=== PATIENT | male | born 1950 | race Caucasian/White ===

== ENCOUNTER 2023-11-26 14:28 | Emergency (ER) | payer OTHER, SELFPAY ==
[2023-11-26 14:47] VITALS: BP 143/82
[2023-11-26 15:28] LABS: % Basophils 0.3 % (0-2); % Immature Granulocytes 0.5 % (0-0.5); % Lymphocytes 8.2 % (20.5-51.1); % Monocytes 12.8 % (1.7-9.3); % Neutrophils 78.2 % (42.2-75.2); Absolute Lymphocytes 0.6 10^3/uL (1.2-3.4); Absolute Neutrophils 5.8 10^3/uL (1.4-6.5); Hematocrit 38.9 % (39.0-52.0); Hemoglobin 13.4 g/dL (13.0-18.0); Mean Corp Hgb Conc. 34.4 g/dL (33.0-37.0); Mean Corpuscular Hgb 32.4 pg (27.0-31.0); Mean Platelet Volume 8.4 fL (7.4-10.4); Nucleated Red Blood Cells % 0 % (-); Platelet Count 166 10^3/uL (130-400); Red Blood Cell Count 4.14 10^6/uL (4.70-6.10); White Blood Cell Count 7.5 10^3/uL (4.8-10.8)
[2023-11-26 15:31] LABS: ALT (SGPT) 20 U/L (0-50); AST (SGOT) 24 U/L (17-59); Albumin 3.8 g/dl (3.5-5.0); Alkaline Phosphatase 94 U/L (38-126); Blood Urea Nitrogen 19 mg/dl (9-20); COVID-19 Antigen Positive (Negative); Carbon Dioxide 23 mmol/L (22-30); Chloride 101 mmol/L (98-107); Glucose 105 mg/dl (70-99); Potassium 3.9 mmol/L (3.5-5.1); Sodium 134 mmol/L (135-145); Total Bilirubin 0.9 mg/dl (0.2-1.3); Total Protein 6.4 g/dl (6.3-8.2); eGFR > 60.00
[2023-11-26 15:43] LABS: Troponin I < 0.012 ng/ml
[2023-11-26 17:31] VITALS: BP 139/77; BP 147/92; BP 157/66; PULSE 58; PULSE 66; PULSE 72
[2023-11-26 17:35] VITALS: BP 157/67
[2023-11-26 17:37] VITALS: BP 147/92
--- NOTE | 2023-11-26 17:53 | ED.GENMED ---
History of Present Illness
General
Chief Complaint: Dizziness
Source: patient
Exam Limitations: dementia
Time Seen by Provider: 11/26/23 16:53
Nursing documentation reviewed up to this point in time: agreed with
Travel History
Have you had any contact with someone who has COVID-19?: No
Do you have any symptoms of coronavirus? Fever > 100 degrees, chills, cough, shortness of breath, sore throat, loss of taste or smell, muscle aches, or headache?: No
History of Present Illness
History of Present Illness:
72-year-old male with a history of glioblastoma status postresection in 2019 with residual short-term memory issues, hypertension, hyperlipidemia, previous DVTs, not on anticoagulation presents for a slight cough and congestion over the last 2 days
as well as today feeling lightheaded. Patient typically has problems with his balance especially when he bends over because of his previous brain surgery. But he seems to be a little bit more off balance today. At 1 point when he was going down
the steps he had to sit down and have his daughter who is his primary caregiver and lives with him helped him. He has not had any headache, change in mental status, vision changes, chest pain or shortness of breath, vomiting or diarrhea. He has an
occasional mild cough and sore throat as well as some swollen glands in his neck.
He never had any syncope or near syncope feeling, he has not had racing heart, he is vaccinated and had 1 booster for COVID but has never had COVID that he knows of
Past History
Past History
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
ED Past Surgical History: Brain (Left temporal brain tumor removal, glioma, 08/18/2019)
Social History
Tobacco: Non-smoker
Alcohol: None
Drug: None
Personal:
Living: with family
Employment: Retired
Family History
Family History: Other (noncontributory)
Review of Systems
Review of Systems
Allergies reviewed?: Yes
Unable to obtain full review of systems at this time due to: dementia
All Other Systems: Not applicable
Phy Exam
Physical Exam
Physical Exam:
GENERAL: Alert , in no apparent distress
HEAD: prior surgery brain
EYE: pupils equal and reactive
NECK: Supple
ENT: b/l TM s clear, pharynx erythematous but no tonsillar hypertrophy or exudates
silghtly tender tonsillar PETERSON
CARDIAC: Regular rate and rhythm, no edema
LUNGS: Clear breath sounds bilaterally, no acute respiratory distress, no wheezes/rales/rhonchi, occ cough
ABDOMEN: Soft, without focal tenderness, no r/g, no cvat, normal bowel sounds
NEUROLOGICAL: Alert and oriented x 3, no focal neuro deficits - situtational confusion ,short term memory loss
SKIN: Warm and dry, skin intact.
MUSCULOSKELETAL: No edema, well perfused.
PSYCH: Normal and appropriate interaction.
Course
Orders/Labs/Results
Orders:
Orders
11/26/23 14:49
EKG [Electrocardiogram (*1)] Urgent
Reason for Study: Vertigo / Dizzy
EKG- Treatment ONCE
11/26/23 15:00
CBC/With Diff [Complete Blood Count/With Diff] Urgent
COVID-19 Antigen Urgent
Source: Nasal Swab
Comprehensive Metabolic Panel Urgent
Troponin I Urgent
Influenza A+B Rapid Molecular Urgent
TING Source: Nasal Swab
Specimen Description:
11/26/23 17:31
Orthostatic VS- Treatment ONCE
11/26/23 17:54
CR Chest - 2 Views Urgent
Comment:
Reason For Exam: covid
Abnormal Lab Results
11/26/23
15:00
RBC 4.14 L 10^6/uL
(4.70-6.10)
Hct 38.9 L %
(39.0-52.0)
MCH 32.4 H pg
(27.0-31.0)
Absolute Lymphs (auto) 0.6 L 10^3/uL
(1.2-3.4)
Absolute Monos (auto) 1.0 H 10^3/uL
(0.1-0.6)
Neutrophils % 78.2 H %
(42.2-75.2)
Lymphocytes % 8.2 L %
(20.5-51.1)
Monocytes % 12.8 H %
(1.7-9.3)
Sodium 134 L mmol/L
(135-145)
Glucose 105 H mg/dl
(70-99)
SARS-CoV-2 Antigen Positive A
(Negative)
11/26/23 15:00
11/26/23 15:00
Vital Signs
Temp: 99.5 F
Initial and Last Documented VS:
Initial Vital Signs
Temp Pulse Resp BP Pulse Ox
100.4 F H 83 16 143/82 95
11/26/23 14:47 11/26/23 14:47 11/26/23 14:47 11/26/23 14:47 11/26/23 14:47
Last Documented Vital Signs
Temp Pulse Resp BP Pulse Ox
99.5 F 62 18 143/80 95
11/26/23 17:59 11/26/23 18:00 11/26/23 18:00 11/26/23 18:00 11/26/23 14:47
MDM/Problems Addressed
Differential Diagnosis Includes:
Near syncope, orthostasis, dehydration, COVID
MDM/Problems Addressed:
72-year-old male with a history of a previous brain tumor resection with chronic short-term memory issues and some balance problems at baseline presents for slightly worsening balance issues today. In the setting of recent URI symptoms. Patient
had a slight fever today at 100.4 when he checked in, he had had Motrin prior to arrival. He has nasal congestion and a dry cough. He is not having any chest pain or shortness of breath, headache, focal neurodeficits. Patient is at his baseline
mental status according to his daughter who is in the room and is primary caregiver. He is very well-appearing and in no distress. This is his first bout of COVID-19 which she tested positive for. He is vaccinated. His temperature is down to
99.5. His orthostatics performed by RN were negative. Family does have a walker which he can use for a couple of days as needed when he gets around just to give him added stability. I offered a head CT but they have a follow-up with his [place]
doctors next week for an MRI and do not feel it is necessary. Will plan on getting a chest x-ray and likely discharge home.
xray indepdently reviewed by me and neg
*Critical Care Note
Total Time (30-74mins, 75-104mins- exclusive of procedures): Not Applicable
ED Attending Note
-
Portions of this chart may have been created with voice recognition software.� Occasional wrong word or��sound alike� substitutions may have occurred due to the inherent limitations of voice recognition software.
Discharge Plan
Departure
Patient Disposition: Home (Routine Discharge)
Date of Disposition: 11/26/23
Time of Disposition: 18:33
Patient with high blood pressure during this ER visit?: Yes
Condition: Fair
Covid-19: Not Applicable
Discharge Problem:
COVID-19, Lightheadedness
Instructions: Dizziness, Nonvertigo, (DC), COVID-19 (DC)
Prescriptions:
No Action
levetiracetam 500 MG tablet
500 mg PO BID
montelukast 10 MG tablet
10 mg PO DAILY
famotidine [Pepcid AC] 10 MG tablet
10 mg PO BID
bisoprolol fumarate 10 MG tablet
10 mg PO BID
potassium chloride [Klor-Con M20] 20 MEQ tablet,ER particles/crystals
20 meq PO DAILY
lisinopril 10 MG tablet
10 mg PO DAILY
fluticasone propionate [Flovent HFA] 1 PUFF HFA aerosol inhaler
1 puff inhalation R BID
mupirocin 1 APPLIC ointment
1 applic topical BIDPRN PRN (Reason: scalp infection)
clobetasol 15 GM ointment
1 applic topical BIDPRN PRN (Reason: scalp irritation)
Referrals:
Gm Qiu MD [Family Provider] - Follow up in 2-3 days
Activity Restrictions/Additional Instructions:
Your symptoms are probably due to COVID-19. You can take Tylenol 3 times a day, Motrin 3 times a day for your fevers and aches. Drink fluids to stay hydrated. Be very cautious when you stand up if you are feeling lightheaded because COVID can
make you feel dizzy. Use your walker for the next couple of days if you need to. Return for any change in mental status, trouble breathing, high fever, lethargy, vomiting, confusion or any concerns. Stay home for total of 5 days from when your
symptoms started and then you can wear a mask in public for an additional 5 days
Interventions
Interventions:
*Risk Screen - Suicide Last Done: 11/26/23 17:20
*General Assessment Last Done: 11/26/23 17:20
*Neglect/Abuse Screening Last Done: 11/26/23 17:20
*ED COVID-19 Vaccine History Last Done: 11/26/23 17:20
*Nursing Disposition Last Done: 11/26/23 18:59
ED- Neurological Assessment Last Done: 11/26/23 17:20
Discharge Date and Time
Discharge Date/Time: 11/26/23 19:00
[2023-11-26 18:00] VITALS: BP 143/80
== END 2023-11-26 19:00 | disposition home or self-care (01) ==
LOC: EMR 14:28
PROVIDERS: EMERGENCY PHYSICIAN Emergency Medicine; FAMILY PHYSICIAN Family Medicine
DX: U07.1 COVID-19 (principal); R42 Dizziness and giddiness; R59.0 Localized enlarged lymph nodes; Z11.52 Encounter for screening for COVID-19; I10 Essential (primary) hypertension; E78.5 Hyperlipidemia, unspecified; I69.311 Memory deficit following cerebral infarction; J45.909 Unspecified asthma, uncomplicated; F03.90 Unspecified dementia, unspecified severity, without behavioral disturbance, psychotic disturbance, mood disturbance, and anxiety; M19.90 Unspecified osteoarthritis, unspecified site; Z85.841 Personal history of malignant neoplasm of brain; Z85.3 Personal history of malignant neoplasm of breast; Z86.718 Personal history of other venous thrombosis and embolism; Z87.01 Personal history of pneumonia (recurrent); Z90.11 Acquired absence of right breast and nipple
CPT/HCPCS: 99284; 71046; 80053; 84484; 85025; 87502; 87811; 93005

== ENCOUNTER → 2024-03-03 13:51 | Outpatient (REF) | payer OTHER, SELFPAY | LOC: RAD 13:51 | PROVIDERS: ATTENDING PHYSICIAN Internal Medicine Hematology & Oncology; FAMILY PHYSICIAN Family Medicine | DX: R60.9 Edema, unspecified (principal); C71.9 Malignant neoplasm of brain, unspecified | CPT/HCPCS: 93970 ==

== ENCOUNTER 2024-05-10 21:04 | Inpatient (IN) | payer OTHER, SELFPAY ==
[2024-05-10] VITALS (7 sets, daily range): BP systolic 110–156; BP diastolic 74–107; BMI 27.7
[2024-05-10 16:49] LABS: % Basophils 0.7 % (0-2); % Eosinophils 0.8 % (0-6); % Immature Granulocytes 0.1 % (0-0.5); % Monocytes 7.9 % (1.7-9.3); % Neutrophils 76.5 % (42.2-75.2); Absolute Basophils 0.1 10^3/uL (0-0.2); Absolute Eosinophils 0.1 10^3/uL (0-0.7); Absolute Monocytes 0.6 10^3/uL (0.1-0.6); Absolute Neutrophils 5.5 10^3/uL (1.4-6.5); Hematocrit 39.3 % (39.0-52.0); Hemoglobin 13.8 g/dL (13.0-18.0); Mean Corp Hgb Conc. 35.1 g/dL (33.0-37.0); Mean Corpuscular Hgb 33.1 pg (27.0-31.0); Mean Corpuscular Volume 94.2 fL (80.0-94.0); Mean Platelet Volume 8.3 fL (7.4-10.4); Nucleated Red Blood Cells % 0 % (-); Platelet Count 174 10^3/uL (130-400); Red Blood Cell Count 4.17 10^6/uL (4.70-6.10); Red Cell Dist. Width 12.9 % (11.5-14.5); White Blood Cell Count 7.2 10^3/uL (4.8-10.8)
[2024-05-10 17:03] LABS: ALT (SGPT) 23 U/L (0-50); AST (SGOT) 31 U/L (17-59); Albumin 4.5 g/dl (3.5-5.0); Alkaline Phosphatase 89 U/L (38-126); Blood Urea Nitrogen 30 mg/dl (9-20); Calcium 9.7 mg/dl (8.4-10.2); Carbon Dioxide 22 mmol/L (22-30); Chloride 108 mmol/L (98-107); Glucose 100 mg/dl (70-99); Potassium 4.1 mmol/L (3.5-5.1); Sodium 139 mmol/L (135-145); Total Bilirubin 1.1 mg/dl (0.2-1.3); Total Protein 7.2 g/dl (6.3-8.2); eGFR > 60.00
--- NOTE | 2024-05-10 18:15 | ED.GENMED ---
History of Present Illness
General
Chief Complaint: Fall
Source: family
Exam Limitations: none
Time Seen by Provider: 05/10/24 17:32
Nursing documentation reviewed up to this point in time: agreed with
History of Present Illness
History of Present Illness:
Patient is a 73-year-old male with glioblastoma brought to the ER by family.
Daughter reports that patient was diagnosed with glioblastoma in 2019 followed at [facility] by Dr. Santos had completed surgery radiation and chemo in 2019 and was doing well however symptoms resolved about 3 months ago. They started
him on chemo and immunotherapy but stopped couple months ago because treatment was not working. Daughter reports patient is now getting worse and has been very confused which is not new however now having worsening balance issues. In fact today
patient fell and landed on his arms. She does not believe he hit his head.
He did require assistance up. Daughter reports he is not able to walk on his own. SHe has been speaking with her social director at [facility] and trying to arrange for placement.
She reports patient normally would not know the year or month.
He is normally confused but this is simply getting progressively worse. Patient arrives awake alert he is able to tell me his name and attempt to follow commands but is even having difficulty following commands and answering questions.
Past History
Past History
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
ED Past Surgical History: Brain (Left temporal brain tumor removal, glioma, 08/18/2019)
Social History
Tobacco: Non-smoker
Alcohol: None
Drug: None
Personal:
Living: with family
Employment: Retired
Family History
Family History: Other (noncontributory)
Review of Systems
Review of Systems
Allergies reviewed?: Yes
Unable to obtain full review of systems at this time due to: other (confusion )
All Other Systems: ROS reviewed and negative except as documented in HPI and ROS
Constitutional: Reports no symptoms
Respiratory: Reports no symptoms
Cardiac: Reports no symptoms
ABD/GI: Reports no symptoms
: Reports no symptoms
Skin: Reports no symptoms
Neurological: Reports other (Worsening confusion difficulty walking worsening balance issue)
Psychiatric: Reports no symptoms
Phy Exam
General Physical Exam
General Presentation: no apparent distress
General age: appears stated age
General Skin: warm and dry
General Habitus: normal
General Mental: alert
General Hydration: appears well hydrated
Cardiovascular Exam
Cardiovascular Exam: regular rate/rhythm, no murmur and normal peripheral pulses
Pulmonary Exam
Pulmonary Exam: lungs clear and no respiratory distress
Neurological Exam
Neurological Exam: alert and other (Confused conversation able to state name attempt to follow commands but unable to do so)
Musculoskeletal Exam
Musculoskeletal Exam: full ROM and other (No obvious head injury on exam no bony extremity tenderness no ecchymosis or abrasions full range of motion to bilateral hips full range of motion to upper and lower extremities)
Skin Exam
Skin Exam: normal color and warm/dry
Psychiatric Exam
Psychiatric Exam: normal mood/affect
Course
Orders/Labs/Results
Orders:
Orders
05/10/24 16:36
CMP [Comprehensive Metabolic Panel] Urgent
Complete Blood Count/With Diff Urgent
05/10/24 17:57
0.9% Sodium Chloride 1000 ml [Nss] 1,000 ml IV BOLUS
05/10/24 18:34
UA Reflex to Culture [Urinalysis Reflex To Culture] Urgent
Date Specimen was Collected: 05/10/24
Time Specimen was Collected: 18:24
Abnormal Lab Results
05/10/24 05/10/24
16:36 18:34
RBC 4.17 L 10^6/uL
(4.70-6.10)
MCV 94.2 H fL
(80.0-94.0)
MCH 33.1 H pg
(27.0-31.0)
Absolute Lymphs (auto) 1.0 L 10^3/uL
(1.2-3.4)
Neutrophils % 76.5 H %
(42.2-75.2)
Lymphocytes % 14.0 L %
(20.5-51.1)
Chloride 108 H mmol/L
(98-107)
BUN 30 H mg/dl
(9-20)
Glucose 100 H mg/dl
(70-99)
Urine Ketones Trace A
(Negative)
Urine Bilirubin 1+ A
(Negative)
05/10/24 16:36
05/10/24 16:36
Vital Signs
Initial and Last Documented VS:
Initial Vital Signs
Temp Pulse Resp BP Pulse Ox
98.2 F 66 20 144/74 97
05/10/24 16:13 05/10/24 16:13 05/10/24 16:13 05/10/24 16:13 05/10/24 16:13
Last Documented Vital Signs
Temp Pulse Resp BP Pulse Ox
98.1 F 56 14 156/78 96
05/10/24 18:04 05/10/24 19:00 05/10/24 19:00 05/10/24 19:00 05/10/24 18:30
MDM/Problems Addressed
Differential Diagnosis Includes:
Not limited to progression of brain cancer, weakness, dehydration, infection
MDM/Problems Addressed:
Patient is a 73-year-old male with glioblastoma treatment was stopped several months ago as treatment was no longer working. Patient was brought by family symptoms are getting progressively worse patient is more more confused difficulty with
balance and frequent falls. She does not feel that she can care for him at home. She has consulted case management at [facility] for possible placement. Today he fell and needed to be assisted up by family. Patient is confused he did get himself up
and stood next to the stretcher and is very unsteady will admit will need placed.
Patient is no obvious head injury on exam daughter would not want CAT scan anyway. Patient is afebrile with a normal white count stable he is dry with a BUN of 30 and was given fluids here in the ER. No evidence of UTI. Patient mid to the
hospital service
*Pulse Oximetry
Patient hypoxic: no
*Critical Care Note
Total Time (30-74mins, 75-104mins- exclusive of procedures): Not Applicable
ED Attending Note
-
Portions of this chart may have been created with voice recognition software.� Occasional wrong word or��sound alike� substitutions may have occurred due to the inherent limitations of voice recognition software.
Discharge Plan
Departure
Patient Disposition: Admit
Date of Disposition: 05/10/24
Time of Disposition: 19:36
Admit to: Med/Surg
Admit to doctor: hospitalist
Presentation/result/management discussed w/ accepting MD/DO: Hospitalist
Patient with high blood pressure during this ER visit?: Yes
Condition: Fair
Covid-19: Not Applicable
Discharge Problem:
Ambulatory dysfunction, Acute dehydration
Prescriptions:
No Action
levetiracetam 500 MG tablet
500 mg PO BID
montelukast 10 MG tablet
10 mg PO DAILY
famotidine [Pepcid AC] 10 MG tablet
10 mg PO BID
bisoprolol fumarate 10 MG tablet
10 mg PO BID
lisinopril 10 MG tablet
20 mg PO DAILY
amlodipine 10 mg Tablet
10 mg PO DAILY
Arnuity Ellipta
Referrals:
Gm Qiu MD [Family Provider] -
Interventions
Interventions:
*Risk Screen - Suicide Last Done: 05/10/24 16:13
*General Assessment Last Done: 05/10/24 16:13
*Neglect/Abuse Screening Last Done: 05/10/24 16:13
*ED COVID-19 Vaccine History Last Done: 05/10/24 18:24
ED-Musculoskeletal Assessment Last Done: 05/10/24 18:22
ED- Neurological Assessment Last Done: 05/10/24 18:22
ED-Skin Assessment Last Done: 05/10/24 18:22
Discharge Date and Time
Print Language: MAORI
[2024-05-10] MEDS: NSS 1000 IV (18:40)
[2024-05-10 18:42] LABS: Urine Albumin Trace (Neg - Trace); Urine Bilirubin 1+ (Negative); Urine Character Clear (Clear); Urine Color Yellow; Urine Glucose Negative (Negative); Urine Ketone Trace (Negative); Urine Leukocyte Negative (Negative); Urine Nitrite Negative (Negative); Urine Occult Blood Negative (Negative); Urine Urobilinogen Negative (Neg - 1+)
--- NOTE | 2024-05-10 19:38 | HPS.HSE ---
Family Physician
-
Family Physician: Gm Qiu
Chief Complaint
-
Increased confusion, falls
History of Present Illness
73-year-old male with being treated for glioblastoma high-grade at [facility] in 2019 with radiation, surgery, chemo. The glioblastoma completely resolved and he was stable until January of this year. He started Temozolomide 5-day course then off for
23 days but became profoundly weak and confused and it was decided with his oncologist to stop chemotherapy treatment . He lives with his daughter who is his power of commercial real estate attorney LALA who states he normally is confused but has gotten profoundly worse
is unable to walk about there are old home, is oriented to name thinks she is his sister has difficulty following directions wanders at night. Patient reports on and off headaches he has tangent talking with difficulty following commands he is not
familiar what the year is. He has been falling at home. She is unable to lift him in the home is not adaptable to any wheelchairs or walkers due to very narrow hallways/doors along with a second story bathroom. She is the primary beam builder helper for
him as her mother 2 years ago abruptly of unknown type of cancer. She is looking for hospice evaluation and permanent longterm placement as she is no longer able to care for him at home. She is not interested in a CT scan of his brain.
Past medical history high-grade glioma left temporal lobe removal August 2019 was treated at [facility] on chemo till 2018 restarted December 2023 but stopped treatment due to weakness, confusion, Asthma, right breast cancer 2009, HTN, obesity
Medical History
Past Medical History
Past Medical History: Reports Other
Additional Past Medical History:
high-grade glioma left temporal lobe removal August 2019 was treated at [facility] on chemo till 2018 restarted December 2023 but stopped treatment due to weakness, confusion, Asthma, right breast cancer 2010, HTN, obesity
Past Surgical History: Reports Other
Additional Past Surgical History:
high-grade glioma left temporal lobe removal August 2019
Social History
Tobacco: Non-smoker
Alcohol: None
Drug: None
Personal:
Living: With Family (Daughter lala VASQUES )
Employment: Retired
Family History
Family History: Not pertinent
Allergies / Home Medications
Allergies reflects when Allergies were last updated in [facility].
Home Medications with original date entered in [facility]
Allergy/Medication List:
Allergies
Allergy/AdvReac Type Severity Reaction Status Date / Time
sulfamethoxazole Allergy Rash Verified 05/10/24 16:13
[From Bactrim]
trimethoprim [From Bactrim] Allergy Rash Verified 05/10/24 16:13
Home Medications
levetiracetam 500 mg tablet 500 mg PO BID 11/07/19
montelukast 10 mg tablet 10 mg PO DAILY 11/07/19
bisoprolol fumarate 10 mg tablet 10 mg PO BID 04/20/22
famotidine 10 mg tablet (Pepcid AC) 10 mg PO BID 04/20/22
lisinopril 10 mg tablet 20 mg PO DAILY 04/20/22
Arnuity Ellipta 05/10/24
amlodipine 10 mg tablet 10 mg PO DAILY 05/10/24
fluticasone furoate 100 mcg/actuation blister powder for inhalation (Arnuity Ellipta) 1 inh inhalation DAILY 05/10/24
Review of Systems
-
History Source: Patient and Family (Daughter Lala VASQUES)
A 12 point ROS was completed and negative except as noted: Yes
Constitutional: Reports Weight Loss and Other (Increased confusion, falls)
EENT: Denies Sore Throat
Respiratory: Denies Cough or Trouble Breathing
Cardiac: Denies Chest Pain, Diaphoresis or Palpitations
Abdomen/GI: Denies Abdominal Pain, Nausea, Vomiting, Diarrhea or Constipated
: Denies Dysuria, Frequency or Flank Pain
Musculoskeletal: Reports Edema (+2 bilateral lower leg edema); Denies Joint Pain
Skin: Denies Itching or Rash
Neurological: Reports Headache, Weakness and Other (Falls); Denies Dizzy
Endocrine: Reports No Symptoms
Hematologic/Lymphatic: Reports No Symptoms
Psych: Reports Calm
Physical Exam
Vital Signs
Vital Signs
Temp Pulse Resp BP Pulse Ox
98.1 F 56 14 156/78 96
05/10/24 18:04 05/10/24 19:00 05/10/24 19:00 05/10/24 19:00 05/10/24 18:30
Physical Exam
General: Comfortable, Obese and Other (Pleasantly confused thinks his daughter is his sister does not know what the year is has tangent talking difficult to follow commands); No Fever or Chills
HEENT: NormoCephalic, Anicteric, PERRLA, [place] Conjunctivae and No Ptosis
Respiratory: Clear; No Wheezes, Rales or Rhonchi
Cardiac: S1/S2, Regular Rhythm and Peripheral Edema (+2 bilateral peripheral edema); No Murmur, Rub, Gallop or JVD
Breast: Deferred by me
GI: Soft, Non Tender, Non Distended, Normal Bowel Sounds and No Hepatosplenomegaly
Genito-urinary: Deferred by me
Musculoskeletal: No Clubbing, No Cyanosis, Edema, Left Lower Extremity (+2) and Edema, Right Lower Extremity (+2); No Edema, Left Upper Extremity or Edema, Right Upper Extremity
Skin: Warm and Dry; No Rash or Jaundice
Neuro: Awake, Alert, Oriented (To name only), Cranial Nerves Intact, No Sensory Deficits and Other (Slight left arm weakness, weakness lower legs with reported falls); No Slurred Speech, Facial Droop or Tremors
Psych: Calm
Laboratory Results
-
05/10/24 16:36
05/10/24 16:36
Laboratory Results
Total Bilirubin 1.1 mg/dl (0.2-1.3) 05/10/24 16:36
AST 31 U/L (17-59) 05/10/24 16:36
ALT 23 U/L (0-50) 05/10/24 16:36
Alkaline Phosphatase 89 U/L (38-126) 05/10/24 16:36
Data Reviewed
-
Lab Data: Labs Reviewed by me
Impression/Plan
-
Impression/plan:
Inpatient MedSurg
#Increased confusion/ambulatory dysfunction secondary to Glioblastoma
-PT/OT/case management consult for longterm placement/hospice eval
-Hx high-grade Glioblastoma left temporal area with removal August 18, 2019 was treated at [facility] with chemo, radiation and immunotherapy that stopped approximately 3 months ago due to no success
-Continue Keppra 500 mg twice daily
#HTN�benign
BP 156/78
-Continue lisinopril 20 mg daily, bisoprolol 10 mg twice daily, amlodipine 10 mg daily
#GERD
-Continue Pepcid 10 mg p.o. twice daily
#Asthma�no acute exacerbation
-Continue Arnuity Ellipta 100 mcg 1 puff daily
#Right breast cancer with removal 2009
DVT prophylaxis
SCDs
DNR per patient with daughter Lala VASQUES present
--- NOTE | 2024-05-10 20:06 | W.PN.UPDATE ---
Update Note
Progress Note Update
This note serves as an addendum to the H&P by a r specialist MAREN Bebe CHENEY
HPI
73M HX status post left temporal brain tumor removal for high-grade glioma in August of 2019 at [facility],
With progression of dz from tumor recurrence , Chemo was stopped in January of this year
Fall again today but daughter did not think head strike.
As per daughter, overall progressive clinicl deterioration with confused mental state, balance dysfunction nd falls .
Daughter has been speaking with her social work msw at [facility] and trying to arrange for placement.
Daughter ( POSandeep) is major healthcare administrator for 05/24.
At this point she is admitting to profound care give burden and considering placmement
PMHX
1. Asthma.
2. Right breast cancer in 2009.
3. High-grade glioma of the left temporal lobe in August of 2019.
PSHX
Left temporal brain tumor removal.
SHX
Tobacco-nonsmoker. Alcohol-none.
Personally-
and living with the family. He is retired.
FHX
Noncontributory to this admission.
Reviewed VS: afebrile HR mid 50s BP q45/75 - 155/78
Wt: 101 kg ( 04/20/22) ---> 92.4 kg ( 05/10/24)
LOSS 8.6 kg ( 18-19 lbs) over 2 yrs
PE
Gen: Pleasant but confused
HEENT: anicteric
Neck: supple
Lungs: CTA
Cor: RRR S1 S2
Abdomen: soft benign
COUNTRY PRINTER APPRENTICE: confused , slight Lt sided hemiparesis
MS: B/L 3 plus edema
No obvious head injury on exam no bony extremity tenderness no ecchymosis or abrasions full range of motion to bilateral hips full range of motion to upper and lower extremities)
Psych: calm but confused , NO Insight
Data
nl CBC
Cl 108
BUN 30
Cr 1.2
e GFR > 60
NEG UA
Last hospitalist admission:
ASSESSMENT & PLAN
Pending Rx reconciliation
Progressive FTT due to clinical progression of High-grade glioma of the left temporal lobe in August of 2019.
No longer on active Rx for brain tumor due to progressive despite tumor resection and chemo at [facility]
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
LOSS 8.6 kg ( 18-19 lbs) over 2 yrs
Profound weakness , worsening chr ambulatory function and chronic balance dysfunction with Falls
POA live in daughter reports profound care give burden and considering placement
- Daughter declined HCT to determine dz progression and prognosis
- cont OP Meds
- PT/OT
- CRM consult for Hospice care eval
Essential Hypertension
- Continue with prior to admission amlodipine, bisoprolol
- Held HCTZ
HX asthma and continue with the albuterol HFA.
DVT Px: SCD
Code: DNR
IP MS
[2024-05-11] VITALS (10 sets, daily range): BP systolic 126–150; BP diastolic 73–87; PULSE 57–58; O2SAT 97–98; BMI 28.3; BMI 29.2
[2024-05-11] MEDS: ZEBETA 10 MG PO ×2 (00:04→20:01)
[2024-05-11] MEDS: PEPCID 10 MG PO ×3 (00:05→20:00)
[2024-05-11] MEDS: KEPPRA 500 MG PO ×3 (00:08→20:00)
--- NOTE | 2024-05-11 08:26 | PHANOTE ---
med rec note- patient is very confused and has no recent ecw. will try to call friend and family on file.
[2024-05-11] MEDS: NORVASC 10 MG PO (08:41)
[2024-05-11] MEDS: SINGULAIR 10 MG PO (08:41)
[2024-05-11] MEDS: ZESTRIL 20 MG PO (08:42)
[2024-05-11] MEDS: ZEBETA PO (09:31)
--- NOTE | 2024-05-11 10:43 | W.PN.HOSP.TC ---
Today's Communication/Plan
-
dc planning
comfort care
Assessment / Plan
Assessment / Plan
Physical Exam
General: Comfortable, Obese and Other (Pleasantly confused thinks his daughter is his sister does not know what the year is has tangent talking difficult to follow commands); No Fever or Chills
HEENT: NormoCephalic, Anicteric, PERRLA, [place] Conjunctivae and No Ptosis
Respiratory: Clear; No Wheezes, Rales or Rhonchi
Cardiac: S1/S2, Regular Rhythm and Peripheral Edema (+2 bilateral peripheral edema); No Murmur, Rub, Gallop or JVD
GI: Soft, Non Tender, Non Distended, Normal Bowel Sounds and No Hepatosplenomegaly
Genito-urinary: no flank tenderness.
Musculoskeletal: No Clubbing, No Cyanosis, Edema, Left Lower Extremity (+2) and Edema, Right Lower Extremity (+2); No Edema, Left Upper Extremity or Edema, Right Upper Extremity
Skin: Warm and Dry; No Rash or Jaundice
Neuro: Awake, Alert, Oriented (To name only), Cranial Nerves Intact, No Sensory Deficits and Other (Slight left arm weakness, weakness lower legs with reported falls); No Slurred Speech, Facial Droop or Tremors
Psych: Calm
#Increased confusion/ambulatory dysfunction secondary to Glioblastoma
-PT/OT/case management consult for snf placement/hospice eval
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 with chemo, radiation and immunotherapy that stopped approximately 3 months ago due to no success
-Continue Keppra 500 mg twice daily
#HTN�benign
BP 156/78
-Continue lisinopril 20 mg daily, bisoprolol 10 mg twice daily, amlodipine 10 mg daily
#GERD
-Continue Pepcid 10 mg p.o. twice daily
#Asthma�no acute exacerbation
-Continue Arnuity Ellipta 100 mcg 1 puff daily
#Right breast cancer with removal 2009
DVT prophylaxis
SCDs
Total time spent to see the patient, examine the patient, review data and lab results, and discuss the treatment plan with patient, daughter, nurse around 55 minutes
Anticipated Discharge: 24 - 48 hours
Subjective/Interval History
-
Date of Service: May 11, 2024
No chest pain or sob
Objective Data
-
Vital Signs:
Vital Signs
Temp Pulse Resp BP Pulse Ox
98.2 F 50 16 150/79 96
05/11/24 08:39 05/11/24 09:31 05/11/24 08:39 05/11/24 08:39 05/11/24 08:39
--- NOTE | 2024-05-11 14:08 | CM ---
Addendum entered by Kelly [address] 05/11/24 15:09:
list of SNF options placed on patient bulletin board and patient daughter aware. She will review and update CM tomorrow on choices. Patient daughter also to talk to marketing community liaison tomorrow. Plan; is placement with hospice at snf.
Original Note:
Patient admitted to from daughter home with consult for hospice. CM spoke with patient daughter who confirmed that home is a 3 story home with a bathroom on the second floor only. Father likes to remain on first floor with bedroom upstairs.
Patient has a cane but per daughter does not use the cane and holds onto furniture instead. Patient PCP is Dr. Qiu and [facility] uses [facility] [address] in [place]. CM reviewed Hospice consult and patient daughter requested hospice call her. CM sent
referral to [facility] liaison and tt sent. Patient daughter indicated that she had spoken with the health and social care teacher at [place] and she was not able to provide recommendations for inpatient placement. CM reviewed possible SNF options and status if hospice that
room and board was not covered/private pay. Patient daughter indicated that patient most likely would qualify for MA pending. CM will print options for SNF's for patient daughter to review pending hospice assessment. CM will continue to follow for
discharge planning needs.
Plan; hospice assessment; placement at SNF with hospice
[2024-05-11] MEDS: FLOVENT 44 MCG INHALER INH (14:14)
--- NOTE | 2024-05-11 14:31 | HOSPNOTE ---
Spoke with daughter and discussed hospice and the philosophy. The plan is to start seeking placement in a facility with hospice services. The patient may decline and require inpatient hospice. Attending and Case management aware of plan and I will
continue to follow.
[2024-05-11] MEDS: FLOVENT 44 MCG INHALER 2 PUFF INH (19:55)
--- NOTE | 2024-05-11 22:15 | PTCARENOTE ---
Pt. climbing out of bed, unable to redirect. Bed alarm alarming several times. Med sitter placed in room for safety. Pt. still unable to follow commands. Pt. very pleasant. RUBIO Desir notified, harjeet chair ordered. Patient in harjeet chair in nurses
station. Plan of care ongoing.
[2024-05-11] MEDS: MELATONIN 5 MG PO (23:46)
[2024-05-12] MEDS: RISPERDAL 0.25 MG PO (01:28)
[2024-05-12 07:19] VITALS: BP 117/75
[2024-05-12] MEDS: FLOVENT 44 MCG INHALER 2 PUFF INH ×2 (08:04→20:05)
[2024-05-12 08:30] VITALS: BP 150/77
--- NOTE | 2024-05-12 09:58 | W.PN.HOSP.TC ---
Today's Communication/Plan
-
dc planning
trial of Risperdal to help with restlessness
Assessment / Plan
Assessment / Plan
Physical Exam
General: Comfortable, Obese. No Fever or Chills
HEENT: Normocephalic, Anicteric, PERRLA, [place] Conjunctivae and No Ptosis
Respiratory: Clear;
Cardiac: S1/S2,
GI: Soft, Non Tender, Non Distended,
Genito-urinary: no flank tenderness.Clear urine.
Musculoskeletal: No Clubbing, No Cyanosis, Edema, Left Lower Extremity (+2) and Edema, Right Lower Extremity (+2); No Edema, Left Upper Extremity or Edema, Right Upper Extremity
Skin: Warm and Dry; No Rash or Jaundice
Neuro: Awake, Alert, Oriented (To name only),
Psych: Restless
A/P
#Increased confusion/ambulatory dysfunction secondary to Glioblastoma and likely dementia, possible Alzheimer's
d/w daughter. Pt is pleasant but restless and needs to re-orient all the time. Will try low dose Risperdal ( she agreed). I called daughter this morning.
-PT/OT/case management consult for intermediate placement/hospice eval
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
-Continue Keppra 500 mg twice daily
#HTN�benign
-Continue lisinopril 20 mg daily, bisoprolol 10 mg twice daily, amlodipine 10 mg daily
#GERD
-Continue Pepcid 10 mg p.o. twice daily
#Asthma�no acute exacerbation
-Continue Arnuity Ellipta 100 mcg 1 puff daily
#Right breast cancer with removal 2009
DVT prophylaxis
SCDs
Total time spent to see the patient, examine the patient, review data and lab results, and discuss the treatment plan with patient, daughter, nurse around 57 minutes
Anticipated Discharge: Within 24 hours
Subjective/Interval History
-
Date of Service: May 12, 2024
No chest pain or sob
No fevers
confused and restless
Objective Data
-
Vital Signs:
Vital Signs
Temp Pulse Resp BP Pulse Ox
97.6 F 67 18 117/75 96
05/12/24 07:19 05/12/24 08:06 05/12/24 08:06 05/12/24 07:19 05/12/24 08:06
I&O
05/11/24 05/12/24 05/13/24
06:59 06:59 06:59
Intake Total 120 / 120
Output Total 360 / 360
Balance -240 / -240
[2024-05-12] MEDS: ZESTRIL 20 MG PO (13:17)
[2024-05-12] MEDS: KEPPRA 500 MG PO ×2 (13:17→20:09)
[2024-05-12] MEDS: PEPCID 10 MG PO ×2 (13:17→20:09)
[2024-05-12] MEDS: SINGULAIR 10 MG PO (13:17)
[2024-05-12] MEDS: NORVASC 10 MG PO (13:18)
[2024-05-12] MEDS: ZEBETA 10 MG PO ×2 (13:18→20:10)
[2024-05-12 13:30] VITALS: BP 150/77
--- NOTE | 2024-05-12 14:14 | CM ---
met with ptient.cont with visual hallucinations,trialing risperdal for restlessness,cont renetta,spoke with daughter sulma who wanted [facility] to [facility].plan hospice at skilled facility.
[2024-05-12 15:15] VITALS: BP 142/90
[2024-05-12 23:00] VITALS: BP 143/73
[2024-05-13 06:22] VITALS: BMI 28.1
[2024-05-13 07:00] VITALS: BP 138/74
[2024-05-13] MEDS: FLOVENT 44 MCG INHALER 2 PUFF INH ×2 (08:02→19:45)
[2024-05-13] MEDS: KEPPRA 500 MG PO ×2 (08:42→19:55)
[2024-05-13] MEDS: NORVASC 10 MG PO (08:43)
[2024-05-13] MEDS: ZESTRIL 20 MG PO (08:43)
[2024-05-13] MEDS: PEPCID 10 MG PO ×2 (08:43→19:55)
[2024-05-13] MEDS: SINGULAIR 10 MG PO (08:43)
[2024-05-13] MEDS: ZEBETA 10 MG PO ×2 (08:44→20:01)
--- NOTE | 2024-05-13 11:05 | W.PN.HOSP.TC ---
Today's Communication/Plan
-
dc planning
Assessment / Plan
Assessment / Plan
Physical Exam
General: Comfortable, Obese. No Fever or Chills
HEENT: Normocephalic, Anicteric, PERRLA, [place] Conjunctivae and No Ptosis
Respiratory: Clear;
Cardiac: S1/S2,
GI: Soft, Non Tender, Non Distended,
Genito-urinary: no flank tenderness.Clear urine.
Musculoskeletal: No Clubbing, No Cyanosis, Edema, Left Lower Extremity (+2) and Edema, Right Lower Extremity (+2); No Edema, Left Upper Extremity or Edema, Right Upper Extremity
Skin: Warm and Dry; No Rash or Jaundice
Neuro: Awake, Alert, Oriented (To name only),
Psych: Restless
A/P
#Increased confusion/ambulatory dysfunction secondary to Glioblastoma and likely dementia, possible Alzheimer's
d/w daughter. Pt is pleasant and calm
He did not need Risperdal
Daughter was made aware of Risperdal and she agreed to use as PRN.
-PT/OT/case management consult for jail placement/hospice eval
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
-Continue Keppra 500 mg twice daily
#HTN�benign
-Continue lisinopril 20 mg daily, bisoprolol 10 mg twice daily, amlodipine 10 mg daily
#GERD
-Continue Pepcid 10 mg p.o. twice daily
#Asthma�no acute exacerbation
-Continue Arnuity Ellipta 100 mcg 1 puff daily
#Right breast cancer with removal 2009
DVT prophylaxis
SCDs
Total time spent to see the patient, examine the patient, review data and lab results, and discuss the treatment plan with patient, daughter, nurse around 45 minutes
Anticipated Discharge: Within 24 hours
Subjective/Interval History
-
Date of Service: May 13, 2024
calm and pleasant
Objective Data
-
Vital Signs:
Vital Signs
Temp Pulse Resp BP Pulse Ox
98.2 F 51 16 138/74 95
05/13/24 07:00 05/13/24 08:05 05/13/24 08:05 05/13/24 07:00 05/13/24 08:05
I&O
05/12/24 05/13/24 05/14/24
06:59 06:59 06:59
Intake Total 120 / 120 300 / 300
Output Total 360 / 360 325 / 325
Balance -240 / -240 -25 / -25
[2024-05-13 15:00] VITALS: BP 127/76
[2024-05-13 23:02] VITALS: BP 140/76
[2024-05-14] MEDS: RISPERDAL 0.25 MG PO (04:04)
[2024-05-14 07:15] VITALS: BP 158/88
[2024-05-14] MEDS: PEPCID 10 MG PO ×2 (07:53→20:39)
[2024-05-14] MEDS: SINGULAIR 10 MG PO (07:53)
[2024-05-14] MEDS: KEPPRA 500 MG PO ×2 (07:53→20:39)
[2024-05-14] MEDS: ZESTRIL 20 MG PO (07:55)
[2024-05-14] MEDS: NORVASC 10 MG PO (07:55)
[2024-05-14] MEDS: FLOVENT 44 MCG INHALER 2 PUFF INH ×2 (08:07→19:58)
[2024-05-14] MEDS: ZEBETA 10 MG PO ×2 (09:04→20:40)
--- NOTE | 2024-05-14 10:49 | W.PN.HOSP.TC ---
Today's Communication/Plan
-
dc planning
Assessment / Plan
Assessment / Plan
Physical Exam
General: Comfortable, Obese. No Fever or Chills
HEENT: Normocephalic, Anicteric, PERRLA, [place] Conjunctivae and No Ptosis
Respiratory: Clear;
Cardiac: S1/S2,
GI: Soft, Non Tender, Non Distended,
Genito-urinary: no flank tenderness.Clear urine.
Musculoskeletal: No Clubbing, No Cyanosis, Edema, Left Lower Extremity (+2) and Edema, Right Lower Extremity (+2); No Edema, Left Upper Extremity or Edema, Right Upper Extremity
Skin: Warm and Dry; No Rash or Jaundice
Neuro: Awake, Alert, Oriented (To name only),
Psych: Restless
A/P
#Increased confusion/ambulatory dysfunction secondary to Glioblastoma and likely dementia, possible Alzheimer's
d/w daughter. Pt is pleasant and calm
He did not need Risperdal
Daughter was made aware of Risperdal and she agreed to use as PRN.
-PT/OT/case management consult for [facility] placement/hospice eval
-Hx high-grade Glioblastoma left temporal area with removal August 18, 2019 was treated at [facility] with chemo, radiation and immunotherapy that stopped approximately 3 months ago due to no success
-Continue Keppra 500 mg twice daily
#HTN�benign
-Continue lisinopril 20 mg daily, bisoprolol 10 mg twice daily, amlodipine 10 mg daily
#GERD
-Continue Pepcid 10 mg p.o. twice daily
#Asthma�no acute exacerbation
-Continue Arnuity Ellipta 100 mcg 1 puff daily
#Right breast cancer with removal 2009
DVT prophylaxis
SCDs
Total time spent to see the patient, examine the patient, review data and lab results, and discuss the treatment plan with patient, daughter, nurse around 45 minutes
Anticipated Discharge: Today
Subjective/Interval History
-
Date of Service: May 14, 2024
No pain issues
Objective Data
-
Vital Signs:
Vital Signs
Temp Pulse Resp BP Pulse Ox
98.2 F 58 18 158/88 97
05/14/24 07:15 05/14/24 08:10 05/14/24 08:10 05/14/24 07:55 05/14/24 08:10
I&O
05/13/24 05/14/24 05/15/24
06:59 06:59 06:59
Intake Total 300 / 300 1080 / 1080
Output Total 325 / 325 2700 / 2700
Balance -25 / -25 -1620 / -1620
[2024-05-14] MEDS: RISPERDAL 0.5 MG PO ×2 (13:46→22:20)
--- NOTE | 2024-05-14 14:30 | PTCARENOTE ---
Pt is alert to self only. Denies any pain. Tolerating diet well eating about 50% of meals. Pt has a very unsteady gait, assist x2 OOB. Pt uses the urinal and commode at the bedside. Pt has been in the bed and the chair today. Pt was out in the
hallway in chair for a bit with RN due to setting off the alarm and being impulsive. Dr Reynolds aware. Pt pleasant most of the time just very confused and impulsive. Pt is currently resting in bed. Bed alarm on for safety. VSS. Call rodriguez is within
reach.
[2024-05-14 15:15] VITALS: BP 142/77
[2024-05-14 23:00] VITALS: BP 147/82
[2024-05-15 07:00] VITALS: BP 153/76
[2024-05-15] MEDS: FLOVENT 44 MCG INHALER 2 PUFF INH ×2 (08:11→19:11)
[2024-05-15] MEDS: KEPPRA 500 MG PO ×2 (08:24→20:30)
[2024-05-15] MEDS: ZEBETA 10 MG PO ×2 (08:24→20:30)
[2024-05-15] MEDS: NORVASC 10 MG PO (08:25)
[2024-05-15] MEDS: PEPCID 10 MG PO ×2 (08:25→20:29)
[2024-05-15] MEDS: SINGULAIR 10 MG PO (08:25)
[2024-05-15] MEDS: RISPERDAL 0.5 MG PO ×2 (08:26→16:36)
[2024-05-15] MEDS: ZESTRIL 20 MG PO (08:26)
--- NOTE | 2024-05-15 08:33 | W.PN.HOSP.TC ---
Today's Communication/Plan
-
Placement pending to SNF
Assessment / Plan
Assessment / Plan
Physical Exam
General: Not in acute distress
HEENT: Normocephalic
Respiratory: Clear to Auscultation Bilaterally
Cardiac: S1/S2,
GI: Soft, Non Tender, Non Distended. Positive bowel sounds.
Musculoskeletal: No Cyanosis, Edema, Left Lower Extremity (+2) and Edema, Right Lower Extremity (+2); No Edema, Left Upper Extremity or Edema, Right Upper Extremity
Skin: Warm and Dry
Neuro: Awake, Alert, Oriented (To person/name only)
Psych: Restless
A/P
#Increased confusion/ambulatory dysfunction secondary to Glioblastoma and likely dementia, possible Alzheimer's
Dr. Reynolds d/w daughter. Pt is pleasant and calm
Daughter was previously made aware of Risperdal and she agreed to use as PRN -- and patient has been getting it
-PT/OT/case management consult for snf placement/hospice eval
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
-Continue Keppra 500 mg twice daily
Patient lives with total managed care coordinator daughter, history of advanced high-grade glioma recurrence , no longer on chemo since January, history of Brain tumor resection ( Aug 2019, [facility]). chronically confused. Patient's daughter wanted to restart comfort
meds but he is not in pain, only confused. He is on PRN Ativan and Risperdal. Await placement.
#HTN�benign
-Continue lisinopril 20 mg daily, bisoprolol 10 mg twice daily, amlodipine 10 mg daily
#GERD
-Continue Pepcid 10 mg p.o. twice daily
#Asthma�no acute exacerbation
-Continue Arnuity Ellipta 100 mcg 1 puff daily
#Right breast cancer with removal 2009
DVT prophylaxis
Lovenox
Anticipated Discharge: 24 - 48 hours
Subjective/Interval History
-
Date of Service: May 15, 2024
Patient was seen and examined. No new significant symptoms or complaints.
Objective Data
-
Vital Signs:
Vital Signs
Temp Pulse Resp BP Pulse Ox
97.4 F 56 16 153/76 97
05/15/24 07:00 05/15/24 08:14 05/15/24 08:14 05/15/24 07:00 05/15/24 08:14
I&O
05/14/24 05/15/24 05/16/24
06:59 06:59 06:59
Intake Total 1080 / 1080 480 / 480
Output Total 2700 / 2700 1425 / 1425
Balance -1620 / -1620 -945 / -945
[2024-05-15 15:00] VITALS: BP 135/73
--- NOTE | 2024-05-15 15:50 | CM ---
Addendum entered by Eli Trujillo RN 05/15/24 16:02:
Patient's daughter returned call. Discussed facilities will to accept. She will reach out to them tomorrow and tour. She will call with her preferred facility.
Original Note:
Reviewed the chart notes. Patient continues on medsitter. CM left voice message for daughter to discuss which SNF she would like. Multiple SNFs are willing to accept. CM continues to be available to patient/family and is monitoring medical plan
for needs at discharge.
Plan: Discharge to SNF and eventually be on hospice.
--- NOTE | 2024-05-15 16:53 | CS.PSYCHR ---
Consult Summary - Psychiatry
-
Pt is 73 yo male admitted with increased confusion and ambulatory dysfunction/falls. Pt has hx of left temporal glioblastoma, treated at [facility] with surgery, chemo, radiation in Aug 2019. The glioblastoma reportedly resolved and pt was stable until
January of this year. Pt restarted chemotx, but it was stopped when pt became profoundly weak and confused. Pt is reportedly usually confused, oriented only to self, tends to get up impulsively, wanders. Pt lives with dtr, in [place] with
small rooms and hallways, bathroom on the second floor. Dtr states she is no longer able to handle the pt's needs at home. Since admission, pt was given Risperidone 0.5 mg yesterday afternoon and HS, then again this am, due to agitation.
Currently, pt is calm and cooperative, though disoriented. He acknowledges feeling 'clumsy', has some awareness of being confused. Pt denies feeling anxious or depressed. Dtr reports he was awake much of last night and called her dozens of times.
Pt has not been on sleeping med at home per dtr.
Psych Hx: denied
PMH: as above, HTN, GERD, Asthma, obesity
SH: lives with dtr, Lala, who is POA
MSE: alert, oriented to self only, guessed [place] when asked which hospital, overall pleasantly confused, occasionally making irrelevant statements. Sensorium appears intact. Pt calmer today per dtr. No EPS evident. No overt delusions or
hallucinations. Mood stable, affect appropriate. Insight limited. Memory impaired; pt states his dtr used to visit, but he lost her, refers to her as his sister.
Imp: Encephalopathy due to glioblastoma/chemotx, with disorientation, agitation, impulsivity, gait dysfunction
Rec: would try routine dosing of Risperidone, keeping dose as low as possible to avoid potential side effects
would minimize benzo given gait dysfunction/fall risk
will try melatonin at HS; consider Trazodone if not effective
will follow
[2024-05-15] MEDS: LOVENOX 40 MG SC (17:37)
[2024-05-15] MEDS: MELATONIN 3 MG PO (21:28)
[2024-05-15 23:37] VITALS: BP 139/81
--- NOTE | 2024-05-16 05:32 | PTCARENOTE ---
Pt w/ small amount of bleeding from penis tip after urinating this AM. No break in skin noted. No blood appears in urine.
[2024-05-16 07:36] VITALS: BP 139/75
[2024-05-16] MEDS: FLOVENT 44 MCG INHALER 2 PUFF INH ×2 (07:57→18:28)
[2024-05-16] MEDS: SINGULAIR 10 MG PO (08:42)
[2024-05-16] MEDS: ZESTRIL 20 MG PO (08:42)
[2024-05-16] MEDS: NORVASC 10 MG PO (08:42)
[2024-05-16] MEDS: PEPCID 10 MG PO ×2 (08:43→20:34)
[2024-05-16] MEDS: ZEBETA 10 MG PO ×2 (08:43→20:34)
[2024-05-16] MEDS: RISPERDAL 0.5 MG PO ×2 (08:43→16:42)
[2024-05-16] MEDS: KEPPRA 500 MG PO ×2 (08:43→20:36)
--- NOTE | 2024-05-16 10:32 | W.PN.UPDATE ---
Update Note
Progress Note Update
Patient seen at bedside, chart reviewed, discussed with RN. Patient is awake, alert, calm, and pleasant at the moment. No acute issues overnight. Mr. Perdomo tells me he did not sleep great however, RN got report that he actually slept well last
night. No daytime sleepiness observed at this time. He is reported as being mostly calm and somewhat confused but cooperative. Would continue to monitor on Melatonin before hastily making changes. Could consider either increasing Melatonin to 5mg or
switching to Trazodone if truly ineffective.
Impression/Recommendations: Encephalopathy related to glioblastoma/treatment with reported disorientation, agitation, & impulsivity. Reportedly less agitated since Risperdal. No med changes recommended at this time. Again, could consider increasing
Melatonin or switching to Trazodone if needed for sleep concerns.
--- NOTE | 2024-05-16 11:10 | PTCARENOTE ---
Medsitter removed at 0900 hrs per hospitalist request. Patient remains on bed alarm. Impulsive when he feels need to toilet. Will verbally state need to toilet but doesn't use call rodriguez or call out for assistance. No agitation or aggression.
--- NOTE | 2024-05-16 14:12 | W.PN.HOSP.TC ---
Today's Communication/Plan
-
Fall Precautions
Monitor off med sitter, given patient is now more calm with the Risperdal scheduled
Placement pending
Assessment / Plan
Assessment / Plan
Physical Exam
General: Not in acute distress
HEENT: Normocephalic
Respiratory: Clear to Auscultation Bilaterally
Cardiac: S1/S2,
GI: Soft, Non Tender, Non Distended. Positive bowel sounds.
Musculoskeletal: No Cyanosis, Edema, Left Lower Extremity (+2) and Edema, Right Lower Extremity (+2)
Skin: Warm and Dry
Neuro: Awake, Alert, Oriented (To person/name only)
Psych: Restless
Assessment/Plan
#Increased confusion/ambulatory dysfunction secondary to Glioblastoma and likely dementia, possible Alzheimer's
Dr. Reynolds d/w daughter.
Psychiatry consulted and patient is now on scheduled Risperdal
-PT/OT/case management consult for shelter placement/hospice eval
-History of high-grade Glioblastoma left temporal area with removal August 18, 2019 was treated at [facility] with chemo, radiation and immunotherapy that stopped approximately 3 months ago due to no success
-Continue Keppra 500 mg twice daily
-Patient is eating and drinking fine
Patient lives with total career development associate daughter, history of advanced high-grade glioma recurrence , no longer on chemo since January, history of Brain tumor resection ( Aug 2019, [facility]). chronically confused. Patient's daughter wanted to restart comfort
medication but he is not in pain, only confused. He is on PRN Ativan and scheduled Risperdal. Await placement.
#Terminal Hematuria
-Consulted urology, recommendations appreciated
-Continue to monitor for now
#HTN�benign
-Continue lisinopril 20 mg daily, bisoprolol 10 mg twice daily, amlodipine 10 mg daily
#GERD
-Continue Pepcid 10 mg p.o. twice daily
#Asthma�no acute exacerbation
-Continue Arnuity Ellipta 100 mcg 1 puff daily
#Right breast cancer with removal 2009
DVT prophylaxis
Lovenox
Anticipated Discharge: 24 - 48 hours
Subjective/Interval History
-
Date of Service: May 16, 2024
Patient was seen and examined. He denied any new symptoms or complaints.
Objective Data
-
Vital Signs:
Vital Signs
Temp Pulse Resp BP Pulse Ox
98 F 62 16 139/75 96
05/16/24 07:36 05/16/24 08:00 05/16/24 08:00 05/16/24 07:36 05/16/24 08:00
I&O
05/15/24 05/16/24 05/17/24
06:59 06:59 06:59
Intake Total 480 / 480 840 / 840
Output Total 1425 / 1425 450 / 450
Balance -945 / -945 390 / 390
--- NOTE | 2024-05-16 14:47 | W.PN.URO.CBU ---
Today's Communication / Plan
-
ig=[f lg hematuria call urolgy butalso call hospitalst to stop lovenox
Assessment / Plan
-
probalable drop blood from lovenox most likely bph bleeding stoppes d and pt poor hisatiorain as pt possibly facing hospice for underlying glioblastoma i would advise observatio unless moere clinically relevan t bleeding or over t sxs
discussed with mary in agreement
Diagnosis
-
Date of Service: May 16, 2024
-
Patient Diagnosis:terminal hematuria stopped pt on lovenox and u/a on arrival was negative poor historian but asx
Post Op Day:
Subjective
-
poor historial but night nursingstaf notew termial hematuria
Objective
-
Vital Signs
Temp Pulse Resp BP Pulse Ox
98 F 62 16 139/75 96
05/16/24 07:36 05/16/24 08:00 05/16/24 08:00 05/16/24 07:36 05/16/24 08:00
Intake and Output
05/15/24 05/16/24 05/17/24
06:59 06:59 06:59
Intake Total 480 / 480 840 / 840
Output Total 1425 / 1425 450 / 450
Balance -945 / -945 390 / 390
Intake:
Oral fluids 480 / 480 840 / 840
Output:
Urine, Voided 1425 / 1425 450 / 450
Other:
Number of approximated MODERATE 3
amounts of urine
Number of unmeasured liquid
stools
Rectum 1
Laboratory Results
05/10/24 16:36
05/10/24 16:36
Review of Systems
-
Unable to obtain full review of systems at this time due to: Dementia
Physical Exam
-
General - well developed, well nourished, no acute distress
Chest - clear bilaterally
Abdomen - soft, non-tender, positive bowel sounds, no CVAT, no incisional pain or distention
Genitalia - normal
Rectal - normal
Skin - warm & dry with no rash
Neuro - AOx3, no motor deficits
Extremities - no clubbing, no cyanosis, no edema
Incision - clean, dry
Dressing - clean, dry, intact
Care Review
Data Reviewed
Discussed with: Hospitalist, Nursing and Family
CT Scan: Image Pers Reviewed
[2024-05-16 15:25] VITALS: BP 134/70
[2024-05-16] MEDS: MIRALAX PO (16:15)
[2024-05-16] MEDS: LOVENOX 40 MG SC (18:07)
[2024-05-16] MEDS: SENOKOT-S 1 TABLET PO (20:36)
[2024-05-16] MEDS: MELATONIN 3 MG PO (21:37)
[2024-05-16 23:50] VITALS: BP 132/69
[2024-05-17 08:04] VITALS: BP 131/81
[2024-05-17] MEDS: FLOVENT 44 MCG INHALER 2 PUFF INH ×2 (08:09→19:27)
[2024-05-17] MEDS: ZEBETA 10 MG PO ×2 (09:07→19:45)
[2024-05-17] MEDS: PEPCID 10 MG PO ×2 (09:08→19:45)
[2024-05-17] MEDS: NORVASC 10 MG PO (09:09)
[2024-05-17] MEDS: KEPPRA 500 MG PO ×2 (09:09→19:44)
[2024-05-17] MEDS: ZESTRIL 20 MG PO (09:09)
[2024-05-17] MEDS: SINGULAIR 10 MG PO (09:09)
[2024-05-17] MEDS: RISPERDAL 0.5 MG PO ×2 (09:09→18:38)
[2024-05-17] MEDS: MIRALAX PO (09:10)
[2024-05-17] MEDS: SENOKOT-S PO (09:10)
--- NOTE | 2024-05-17 09:25 | W.PN.URO.CBU ---
Today's Communication / Plan
-
no gu changes
Assessment / Plan
-
probalable drop blood from lovenox most likely bph bleeding stoppes d and pt poor hisatiorain as pt possibly facing hospice for underlying glioblastoma i would advise observatio unless moere clinically relevan t bleeding or over t sxs
discussed with mary in agreement
Diagnosis
-
Date of Service: May 17, 2024
-
Patient Diagnosis:
Post Op Day:
Patient Diagnosis:terminal hematuria stopped pt on lovenox and u/a on arrival was negative poor historian but asx
Post Op Day:
Subjective
-
no blood noted by pt staff
Objective
-
Vital Signs
Temp Pulse Resp BP Pulse Ox
98.2 F 57 16 131/81 97
05/17/24 08:04 05/17/24 08:04 05/17/24 08:04 05/17/24 08:04 05/17/24 08:04
Intake and Output
05/16/24 05/17/24 05/18/24
06:59 06:59 06:59
Intake Total 840 / 840 960 / 960
Output Total 450 / 450 725 / 725
Balance 390 / 390 235 / 235
Intake:
Oral fluids 840 / 840 960 / 960
Output:
Urine, Voided 450 / 450 725 / 725
Other:
Number of approximated MODERATE 3 1
amounts of urine
Laboratory Results
05/10/24 16:36
05/10/24 16:36
Review of Systems
-
: No Symptoms
Physical Exam
-
General - well developed, well nourished, no acute distress
Chest - clear bilaterally
Abdomen - soft, non-tender, positive bowel sounds, no CVAT, no incisional pain or distention
Genitalia - normal
Rectal - normal
Skin - warm & dry with no rash
Neuro - AOx3, no motor deficits
Extremities - no clubbing, no cyanosis, no edema
Incision - clean, dry
Dressing - clean, dry, intact
Care Review
Data Reviewed
Discussed with: Nursing
--- NOTE | 2024-05-17 11:37 | W.PN.UPDATE ---
Update Note
Progress Note Update
patient seen chart reviewed. spoke with nursing. patient is sitting comfortably in a chair. he offered no complaints. noted that he is taking risperdal which has helped w irritability. melatonin helping with sleep. he remains confused and is a poor
historian but overall has been cooperative with care. he has not required a prn for agitation. psych will sign off. olease call us if you need us to return.
--- NOTE | 2024-05-17 12:50 | W.PN.HOSP.TC ---
Today's Communication/Plan
-
SNF placement pending
Doing better, no agitation
Assessment / Plan
Assessment / Plan
Physical Exam
General: Not in acute distress
HEENT: Normocephalic
Respiratory: Clear to Auscultation Bilaterally
Cardiac: S1/S2,
GI: Soft, Non Tender, Non Distended. Positive bowel sounds.
Musculoskeletal: No Cyanosis, Edema, Left Lower Extremity (+2) and Edema, Right Lower Extremity (+2)
Skin: Warm and Dry
Neuro: Awake, Alert, Oriented (To person/name only)
Psych: Restless
Assessment/Plan
#Increased confusion/ambulatory dysfunction secondary to Glioblastoma and likely dementia, possible Alzheimer's
#Agitation - RESOLVED
Dr. Reynolds d/w daughter.
Psychiatry consulted and patient is now on scheduled Risperdal
-PT/OT/case management consult for senior living placement/hospice eval
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
-Continue Keppra 500 mg twice daily
-Continue Risperdal
-Patient is eating and drinking fine
-Appreciate Psychiatry
Patient lives with total managed care liaison daughter, history of advanced high-grade glioma recurrence , no longer on chemo since January, history of Brain tumor resection ( Aug 2019, [facility]). chronically confused. Patient's daughter wanted to restart comfort
medication but he is not in pain, only confused. He is on PRN Ativan and scheduled Risperdal. Await placement.
#Terminal Hematuria
-Consulted urology, recommendations appreciated
-Continue to monitor for now
#HTN�benign
-Continue lisinopril 20 mg daily, bisoprolol 10 mg twice daily, amlodipine 10 mg daily
#GERD
-Continue Pepcid 10 mg p.o. twice daily
#Asthma�no acute exacerbation
-Continue Arnuity Ellipta 100 mcg 1 puff daily
#Right breast cancer with removal 2009
DVT prophylaxis
Lovenox
Anticipated Discharge: > 48 hours
Subjective/Interval History
-
Date of Service: May 17, 2024
Patient was seen and examined. He was sitting in a chair comfortably and denied any new significant symptoms or complaints.
Objective Data
-
Labs:
Laboratory Results
05/17/24
20:00
WBC Pending
Hgb Pending
Hct Pending
Plt Count Pending
Sodium Pending
Potassium Pending
Chloride Pending
Carbon Dioxide Pending
BUN Pending
Creatinine Pending
Glucose Pending
Calcium Pending
Total Bilirubin Pending
AST Pending
ALT Pending
Alkaline Phosphatase Pending
Vital Signs:
Vital Signs
Temp Pulse Resp BP Pulse Ox
98.2 F 57 16 131/81 97
05/17/24 08:04 05/17/24 08:04 05/17/24 08:04 05/17/24 08:04 05/17/24 08:04
I&O
05/16/24 05/17/24 05/18/24
06:59 06:59 06:59
Intake Total 840 / 840 960 / 960
Output Total 450 / 450 725 / 725
Balance 390 / 390 235 / 235
[2024-05-17 15:43] VITALS: BP 129/73
[2024-05-17 15:48] VITALS: BP 129/73; BP 160/82; PULSE 60; O2SAT 98
[2024-05-17 15:50] VITALS: BP 129/73; BP 160/86; PULSE 64; O2SAT 98
--- NOTE | 2024-05-17 16:02 | CM ---
Case management following for d/c planning
Called pts daughter to discuss SNF choices
[facility]orts has been to 2 locations - [facility]. Would like to see additional facilities. Encouraged to go to Medicare.gov for additional choices.
Remains on medsitter
Will need auth
CM will follow for needs
Plan - anticipate transfer to snf when bed obtained and medically ready
[2024-05-17] MEDS: LOVENOX 40 MG SC (18:36)
[2024-05-17] MEDS: SENOKOT-S 1 TABLET PO (19:45)
[2024-05-17] MEDS: MELATONIN 3 MG PO (21:20)
[2024-05-17 22:21] LABS: % Basophils 0.6 % (0-2); % Eosinophils 2.3 % (0-6); % Immature Granulocytes 0.3 % (0-0.5); % Lymphocytes 17.7 % (20.5-51.1); % Monocytes 9.1 % (1.7-9.3); Absolute Eosinophils 0.2 10^3/uL (0-0.7); Absolute Lymphocytes 1.2 10^3/uL (1.2-3.4); Absolute Monocytes 0.6 10^3/uL (0.1-0.6); Absolute Neutrophils 4.8 10^3/uL (1.4-6.5); Hematocrit 41.4 % (39.0-52.0); Hemoglobin 14.6 g/dL (13.0-18.0); Mean Corp Hgb Conc. 35.3 g/dL (33.0-37.0); Mean Corpuscular Hgb 32.2 pg (27.0-31.0); Mean Corpuscular Volume 91.4 fL (80.0-94.0); Nucleated Red Blood Cells % 0 % (-); Platelet Count 181 10^3/uL (130-400); Red Blood Cell Count 4.53 10^6/uL (4.70-6.10); Red Cell Dist. Width 12.8 % (11.5-14.5); White Blood Cell Count 6.9 10^3/uL (4.8-10.8)
[2024-05-17 22:37] LABS: ALT (SGPT) 20 U/L (0-50); AST (SGOT) 22 U/L (17-59); Albumin 4.4 g/dl (3.5-5.0); Alkaline Phosphatase 90 U/L (38-126); Calcium 9.5 mg/dl (8.4-10.2); Carbon Dioxide 22 mmol/L (22-30); Chloride 101 mmol/L (98-107); Glucose 119 mg/dl (70-99); Magnesium 2.2 mg/dl (1.6-2.3); Potassium 4.1 mmol/L (3.5-5.1); Total Bilirubin 0.6 mg/dl (0.2-1.3); Total Protein 6.9 g/dl (6.3-8.2)
[2024-05-17 22:46] LABS: Blood Urea Nitrogen 25 mg/dl (9-20); Estimated Creatinine Clearance 69 ml/min; Sodium 138 mmol/L (135-145); eGFR > 60.00
[2024-05-17 23:43] VITALS: BP 129/77
[2024-05-18] MEDS: FLOVENT 44 MCG INHALER 2 PUFF INH ×2 (07:23→20:28)
[2024-05-18 10:07] VITALS: BP 158/80
[2024-05-18] MEDS: KEPPRA 500 MG PO ×2 (10:09→20:15)
[2024-05-18] MEDS: SENOKOT-S 1 TABLET PO ×2 (10:10→20:15)
[2024-05-18] MEDS: NORVASC 10 MG PO (10:10)
[2024-05-18] MEDS: ZESTRIL 20 MG PO (10:10)
[2024-05-18] MEDS: SINGULAIR 10 MG PO (10:10)
[2024-05-18] MEDS: PEPCID 10 MG PO ×2 (10:10→20:15)
[2024-05-18] MEDS: ZEBETA 10 MG PO ×2 (10:10→20:15)
[2024-05-18] MEDS: RISPERDAL 0.5 MG PO ×2 (10:11→18:10)
[2024-05-18] MEDS: MIRALAX 17 GRAMS PO (10:12)
--- NOTE | 2024-05-18 10:23 | CM ---
Addendum entered by Shyann Blake RN 05/18/24 13:37:
CM received call from Alise at [facility]. She is unable to accept.
Addendum entered by Shyann Blake RN 05/18/24 10:44:
CM spoke with daughter. She would like referrals sent to the following facilities:
[facility] ([place], [place])
[facility] [place]
[facility]
Patient's daughter would like to discuss LTC/financial application for [facility]. CM updated at [facility].
CM will remain available.
Original Note:
CM reviewed medical records. CM left message for patient to discuss SNF choices. CM will continue to follow as needed.
--- NOTE | 2024-05-18 10:57 | W.PN.HOSP.TC ---
Today's Communication/Plan
-
SNF placement pending, referrals were sent
Assessment / Plan
Assessment / Plan
Physical Exam
General: Not in acute distress
HEENT: Normocephalic
Respiratory: Clear to Auscultation Bilaterally
Cardiac: S1/S2,
GI: Soft, Non Tender, Non Distended. Positive bowel sounds.
Musculoskeletal: No Cyanosis, Edema, Left Lower Extremity (+2) and Edema, Right Lower Extremity (+2)
Skin: Warm and Dry
Neuro: Awake, Alert, Oriented (To person/name only)
Psych: Restless
Assessment/Plan
#Increased confusion/ambulatory dysfunction secondary to Glioblastoma and likely dementia, possible Alzheimer's
#Agitation - RESOLVED
Dr. Reynolds d/w daughter.
Psychiatry consulted and patient is now on scheduled Risperdal
-PT/OT/case management consult for long-term placement/hospice eval
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
-Continue Keppra 500 mg twice daily
-Continue Risperdal
-Patient is eating and drinking fine
-Appreciate Psychiatry
Patient lives with total career based intervention coordinator daughter, history of advanced high-grade glioma recurrence , no longer on chemo since January, history of Brain tumor resection ( Aug 2019, [facility]). chronically confused. Patient's daughter wanted to restart comfort
medication but he is not in pain, only confused. He is on PRN Ativan and scheduled Risperdal. Await placement.
#Terminal Hematuria
-Consulted urology, recommendations appreciated
-Continue to monitor for now
#HTN�benign
-Continue lisinopril 20 mg daily, bisoprolol 10 mg twice daily, amlodipine 10 mg daily
#GERD
-Continue Pepcid 10 mg p.o. twice daily
#Asthma�no acute exacerbation
-Continue Arnuity Ellipta 100 mcg 1 puff daily
#Right breast cancer with removal 2009
DVT prophylaxis
Lovenox
Anticipated Discharge: 24 - 48 hours
Subjective/Interval History
-
Date of Service: May 18, 2024
Patient was seen and examined. No new symptoms or complaints.
Objective Data
-
Vital Signs:
Vital Signs
Temp Pulse Resp BP Pulse Ox
98.6 F 62 16 158/80 98
05/18/24 10:07 05/18/24 10:07 05/18/24 10:07 05/18/24 10:07 05/18/24 10:07
I&O
05/17/24 05/18/24 05/19/24
06:59 06:59 06:59
Intake Total 960 / 960 840 / 840
Output Total 725 / 725 1500 / 1500
Balance 235 / 235 -660 / -660
--- NOTE | 2024-05-18 15:31 | W.PN.URO.CBU ---
Today's Communication / Plan
-
observe vall if rebleeds in gu tract
Assessment / Plan
-
probalable drop blood from lovenox most likely bph bleeding stoppes d and pt poor hisatiorain as pt possibly facing hospice for underlying glioblastoma i would advise observatio unless moere clinically relevan t bleeding or over t sxs
discussed with mary in agreement
Diagnosis
-
Date of Service: May 18, 2024
-
Patient Diagnosis:
Post Op Day:
Patient Diagnosis:
Post Op Day:
Patient Diagnosis:terminal hematuria stopped pt on lovenox and u/a on arrival was negative poor historian but asx
Post Op Day:
Subjective
-
no hematuria
Objective
-
Vital Signs
Temp Pulse Resp BP Pulse Ox
98.6 F 62 16 158/80 98
05/18/24 10:07 05/18/24 10:07 05/18/24 10:07 05/18/24 10:07 05/18/24 10:07
Intake and Output
05/17/24 05/18/24 05/19/24
06:59 06:59 06:59
Intake Total 960 / 960 840 / 840
Output Total 725 / 725 1500 / 1500
Balance 235 / 235 -660 / -660
Intake:
Oral fluids 960 / 960 840 / 840
Output:
Urine, Voided 725 / 725 1500 / 1500
Other:
Number of approximated MODERATE 1 2
amounts of urine
Laboratory Results
05/17/24 22:14
05/17/24 22:14
Review of Systems
-
Unable to obtain full review of systems at this time due to: Dementia
Physical Exam
-
General - well developed, well nourished, no acute distress
Chest - clear bilaterally
Abdomen - soft, non-tender, positive bowel sounds, no CVAT, no incisional pain or distention
Genitalia - normal
Rectal - normal
Skin - warm & dry with no rash
Neuro - AOx3, no motor deficits
Extremities - no clubbing, no cyanosis, no edema
Incision - clean, dry
Dressing - clean, dry, intact
[2024-05-18 15:42] VITALS: BP 127/65
[2024-05-18] MEDS: LOVENOX 40 MG SC (18:10)
[2024-05-18] MEDS: MELATONIN 3 MG PO (21:28)
[2024-05-19 07:35] VITALS: BP 125/75
[2024-05-19] MEDS: FLOVENT 44 MCG INHALER 2 PUFF INH ×2 (07:42→20:05)
[2024-05-19] MEDS: ZEBETA PO (08:17)
[2024-05-19] MEDS: PEPCID 10 MG PO ×2 (08:22→21:09)
[2024-05-19] MEDS: RISPERDAL 0.5 MG PO ×2 (08:22→17:14)
[2024-05-19] MEDS: ZESTRIL 20 MG PO (08:22)
[2024-05-19] MEDS: SENOKOT-S 1 TABLET PO (08:22)
[2024-05-19] MEDS: KEPPRA 500 MG PO ×2 (08:23→21:10)
[2024-05-19] MEDS: MIRALAX 17 GRAMS PO (08:23)
[2024-05-19] MEDS: SINGULAIR 10 MG PO (08:23)
[2024-05-19] MEDS: NORVASC 10 MG PO (08:23)
--- NOTE | 2024-05-19 10:15 | W.PN.HOSP.TC ---
Today's Communication/Plan
-
Placement still pending, case management still working on it
Assessment / Plan
Assessment / Plan
Physical Exam
General: Not in acute distress
HEENT: Normocephalic
Respiratory: Clear to Auscultation Bilaterally
Cardiac: S1/S2,
GI: Soft, Non Tender, Non Distended. Positive bowel sounds.
Musculoskeletal: No Cyanosis, Edema, Left Lower Extremity (+2) and Edema, Right Lower Extremity (+2)
Skin: Warm and Dry
Neuro: Awake, Alert, Oriented (To person/name only)
Psych: Restless
Assessment/Plan
#Increased confusion/ambulatory dysfunction secondary to Glioblastoma and likely dementia, possible Alzheimer's
#Agitation - RESOLVED
Dr. Reynolds d/w daughter.
Psychiatry consulted and patient is now on scheduled Risperdal
-PT/OT/case management consult for half-way placement/hospice eval
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
-Continue Keppra 500 mg twice daily
-Continue Risperdal
-Patient is eating and drinking fine
-Appreciate Psychiatry
Patient lives with total care coordination manager daughter, history of advanced high-grade glioma recurrence , no longer on chemo since January, history of Brain tumor resection ( Aug 2019, [facility]). chronically confused. Patient's daughter wanted to restart comfort
medication but he is not in pain, only confused. He is on PRN Ativan and scheduled Risperdal. Await placement.
#Terminal Hematuria
-Consulted urology, recommendations appreciated
-Continue to monitor for now
#HTN�benign
-Continue lisinopril 20 mg daily, bisoprolol 10 mg twice daily, amlodipine 10 mg daily
#GERD
-Continue Pepcid 10 mg p.o. twice daily
#Asthma�no acute exacerbation
-Continue Arnuity Ellipta 100 mcg 1 puff daily
#Right breast cancer with removal 2009
DVT prophylaxis
Lovenox
Anticipated Discharge: > 48 hours
Subjective/Interval History
-
Date of Service: May 19, 2024
Patient was seen and examined. He was eating breakfast and denied any new symptoms or complaints.
Objective Data
-
Vital Signs:
Vital Signs
Temp Pulse Resp BP Pulse Ox
97.9 F 52 16 125/75 96
05/19/24 07:35 05/19/24 07:40 05/19/24 07:40 05/19/24 08:22 05/19/24 07:40
I&O
05/18/24 05/19/24 05/20/24
06:59 06:59 06:59
Intake Total 840 / 840 1320 / 1320
Output Total 1500 / 1500 575 / 575
Balance -660 / -660 745 / 745
[2024-05-19 11:07] VITALS: BP 135/77; PULSE 67
[2024-05-19 11:10] VITALS: BP 135/77; PULSE 67
--- NOTE | 2024-05-19 13:08 | W.PN.URO.CBU ---
Today's Communication / Plan
-
no gu changes delgado sign off
Assessment / Plan
-
probalable drop blood from lovenox most likely bph bleeding stoppes d and pt poor hisatiorain as pt possibly facing hospice for underlying glioblastoma i would advise observatio unless moere clinically relevan t bleeding or over t sxs
discussed with mary in agreement
Diagnosis
-
Date of Service: May 19, 2024
-
Patient Diagnosis:
Post Op Day:
Patient Diagnosis:
Post Op Day:
Patient Diagnosis:
Post Op Day:
Patient Diagnosis:terminal hematuria stopped pt on lovenox and u/a on arrival was negative poor historian but asx
Post Op Day:
Subjective
-
no obvious hematuria x days
Objective
-
Vital Signs
Temp Pulse Resp BP Pulse Ox
97.9 F 52 16 125/75 96
05/19/24 07:35 05/19/24 07:40 05/19/24 07:40 05/19/24 08:22 05/19/24 07:40
Intake and Output
05/18/24 05/19/24 05/20/24
06:59 06:59 06:59
Intake Total 840 / 840 1320 / 1320
Output Total 1500 / 1500 575 / 575
Balance -660 / -660 745 / 745
Intake:
Oral fluids 840 / 840 1320 / 1320
Output:
Urine, Voided 1500 / 1500 575 / 575
Other:
Number of approximated MODERATE 2
amounts of urine
Laboratory Results
05/17/24 22:14
05/17/24 22:14
Review of Systems
-
: No Symptoms
Physical Exam
-
General - well developed, well nourished, no acute distress
Chest - clear bilaterally
Abdomen - soft, non-tender, positive bowel sounds, no CVAT, no incisional pain or distention
Genitalia - normal
Rectal - normal
Skin - warm & dry with no rash
Neuro - AOx3, no motor deficits
Extremities - no clubbing, no cyanosis, no edema
Incision - clean, dry
Dressing - clean, dry, intact
--- NOTE | 2024-05-19 14:34 | CM ---
Case management following for d/c planning
Spoke with pts daughter - updated on facilities accepting
[facility] - no beds
[facility] - can accept - would need to fill out financial information
[facility]
Daughter interested in both facilities
Reached out to admission coordinators to have them contact her
Daughter will return call after speaking with coordinators
Will need auth
Plan - SNF when bed obtained
[2024-05-19 15:20] VITALS: BP 128/73
[2024-05-19] MEDS: LOVENOX 40 MG SC (17:15)
[2024-05-19] MEDS: ZEBETA 10 MG PO (21:07)
[2024-05-19] MEDS: SENOKOT-S PO (21:07)
[2024-05-19] MEDS: MELATONIN 3 MG PO (21:09)
[2024-05-19 23:30] VITALS: BP 131/71
[2024-05-20 07:00] VITALS: BP 131/79
[2024-05-20] MEDS: FLOVENT 44 MCG INHALER 2 PUFF INH ×2 (07:43→18:05)
[2024-05-20] MEDS: SINGULAIR 10 MG PO (08:13)
[2024-05-20] MEDS: RISPERDAL 0.5 MG PO ×2 (08:13→16:47)
[2024-05-20] MEDS: KEPPRA 500 MG PO ×2 (08:14→20:11)
[2024-05-20] MEDS: PEPCID 10 MG PO ×2 (08:14→20:10)
[2024-05-20] MEDS: SENOKOT-S PO (08:15)
[2024-05-20] MEDS: MIRALAX PO (08:15)
[2024-05-20] MEDS: ZESTRIL 20 MG PO (08:18)
[2024-05-20] MEDS: NORVASC 10 MG PO (08:18)
[2024-05-20] MEDS: ZEBETA 10 MG PO ×2 (08:18→20:09)
--- NOTE | 2024-05-20 09:43 | HOSPNOTE ---
Reviewed notes. [facility] and [facility] are interested in accepting patient. Daughter was interested in both facilities as well. Daughter was going to be in touch with the admissions department at each facility. Hospice will continue to follow. The
plan would be to admit patient onto hospice services once he is placed. Hospice is able to follow patient to both [facility] and [facility]. CM updated. Will continue to follow.
--- NOTE | 2024-05-20 09:56 | W.PN.HOSP.TC ---
Today's Communication/Plan
-
Patient's daughter and case management still working on choosing a SNF and SNF placement
Assessment / Plan
Assessment / Plan
Physical Exam
General: Not in acute distress
HEENT: Normocephalic
Respiratory: Clear to Auscultation Bilaterally
Cardiac: S1/S2,
GI: Soft, Non Tender, Non Distended. Positive bowel sounds.
Musculoskeletal: No Cyanosis, Edema, Left Lower Extremity (+2) and Edema, Right Lower Extremity (+2)
Skin: Warm and Dry
Neuro: Awake, Alert, Oriented (To person/name only)
Psych: Restless
Assessment/Plan
#Increased confusion/ambulatory dysfunction secondary to Glioblastoma and likely dementia, possible Alzheimer's
#Agitation - RESOLVED
Dr. Reynolds d/w daughter.
Psychiatry consulted and patient is now on scheduled Risperdal
-PT/OT/case management consult for care home placement/hospice eval
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
-Continue Keppra 500 mg twice daily
-Continue Risperdal
-Patient is eating and drinking fine
-Appreciate Psychiatry
Patient lives with total care professionals daughter, history of advanced high-grade glioma recurrence , no longer on chemo since January, history of Brain tumor resection ( Aug 2019, [facility]). chronically confused. Patient's daughter wanted to restart comfort
medication but he is not in pain, only confused. He is on PRN Ativan and scheduled Risperdal. Await placement.
#Terminal Hematuria
-Consulted urology, recommendations appreciated
-Continue to monitor for now
#HTN�benign
-Continue lisinopril 20 mg daily, bisoprolol 10 mg twice daily, amlodipine 10 mg daily
#GERD
-Continue Pepcid 10 mg p.o. twice daily
#Asthma�no acute exacerbation
-Continue Arnuity Ellipta 100 mcg 1 puff daily
#Right breast cancer with removal 2009
DVT prophylaxis
Lovenox
Anticipated Discharge: > 48 hours
Subjective/Interval History
-
Date of Service: May 20, 2024
Patient was seen and examined. He denied any new symptoms or complaints.
Objective Data
-
Vital Signs:
Vital Signs
Temp Pulse Resp BP Pulse Ox
97.9 F 58 16 134/80 96
05/20/24 07:00 05/20/24 08:18 05/20/24 07:45 05/20/24 08:18 05/20/24 07:45
I&O
05/19/24 05/20/24 05/21/24
06:59 06:59 06:59
Intake Total 1320 / 1320 930 / 930
Output Total 575 / 575 1650 / 1650
Balance 745 / 745 -720 / -720
[2024-05-20 15:00] VITALS: BP 152/88
[2024-05-20] MEDS: LOVENOX 40 MG SC (17:10)
[2024-05-20] MEDS: MELATONIN 3 MG PO (20:11)
[2024-05-20] MEDS: SENOKOT-S 1 TABLET PO (20:11)
[2024-05-21 07:00] VITALS: BP 158/79
[2024-05-21] MEDS: NORVASC 10 MG PO (07:42)
[2024-05-21] MEDS: RISPERDAL 0.5 MG PO ×2 (07:42→17:23)
[2024-05-21] MEDS: MIRALAX 17 GRAMS PO (07:42)
[2024-05-21] MEDS: ZEBETA 10 MG PO ×2 (07:42→20:30)
[2024-05-21] MEDS: SENOKOT-S 1 TABLET PO ×2 (07:42→20:30)
[2024-05-21] MEDS: ZESTRIL 20 MG PO (07:43)
[2024-05-21] MEDS: KEPPRA 500 MG PO ×2 (07:43→20:30)
[2024-05-21] MEDS: SINGULAIR 10 MG PO (07:43)
[2024-05-21] MEDS: PEPCID 10 MG PO ×2 (07:43→20:30)
[2024-05-21] MEDS: FLOVENT 44 MCG INHALER 2 PUFF INH ×2 (07:57→20:08)
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
--- NOTE | 2024-05-21 12:50 | CM ---
Addendum entered by Viola Johansen 05/21/24 15:52:
Met with daughter at bedside
Additional referral sent in [facility]
Original Note:
Case management following for d/c planning
Pt remains on medsitter
Daughter following up with facilities to determine placement
Will need auth once facility determined
Plan - anticipate d/c to snf when facility obtained, off medsitter and auth obtained
[2024-05-21 15:00] VITALS: BP 115/72
--- NOTE | 2024-05-21 15:42 | CHAP ---
Mr. Perdomo was sitting in chair, resting his head on his hands. He welcomed my visit. He's weary of being in hospital - would like to 'walk outside in the sun.' His thoughts were somewhat confused - he mentioned children and grandchildren, and
a love for music. Emotional and spiritual support provided, with assurance that we are here for him.
[2024-05-21] MEDS: LOVENOX 40 MG SC (17:23)
[2024-05-21] MEDS: MELATONIN 3 MG PO (20:31)
[2024-05-21 23:40] VITALS: BP 140/81
[2024-05-22 07:00] VITALS: BP 137/81
[2024-05-22] MEDS: FLOVENT 44 MCG INHALER 2 PUFF INH ×2 (08:10→19:33)
[2024-05-22] MEDS: SINGULAIR 10 MG PO (09:04)
[2024-05-22] MEDS: KEPPRA 500 MG PO ×2 (09:04→20:04)
[2024-05-22] MEDS: ZESTRIL 20 MG PO (09:04)
[2024-05-22] MEDS: SENOKOT-S 1 TABLET PO ×2 (09:04→20:04)
[2024-05-22] MEDS: PEPCID 10 MG PO ×2 (09:08→20:04)
[2024-05-22] MEDS: ZEBETA 10 MG PO ×2 (09:08→20:04)
[2024-05-22] MEDS: RISPERDAL 0.5 MG PO ×2 (09:08→17:36)
[2024-05-22] MEDS: NORVASC 10 MG PO (09:09)
[2024-05-22] MEDS: MIRALAX 17 GRAMS PO (09:09)
[2024-05-22] MEDS: TYLENOL 650 MG PO (09:39)
--- NOTE | 2024-05-22 09:51 | W.PN.HOSP.TC ---
Today's Communication/Plan
-
dc
Assessment / Plan
Assessment / Plan
Physical Exam
General: Not in acute distress
HEENT: Normocephalic
Respiratory: Clear to Auscultation Bilaterally
Cardiac: S1/S2,
GI: Soft, Non Tender, Non Distended. Positive bowel sounds.
Musculoskeletal: No Cyanosis, Edema, Left Lower Extremity (+2) and Edema, Right Lower Extremity (+2)
Skin: Warm and Dry
Neuro: Awake, Alert, Oriented (To person/name only)
Psych: Restless
Assessment/Plan
#Increased confusion/ambulatory dysfunction secondary to Glioblastoma and likely dementia, possible Alzheimer's
#Agitation - RESOLVED
Psychiatry consulted and patient is now on scheduled Risperdal
-PT/OT/case management consult for [facility] placement/hospice eval
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
-Continue Keppra 500 mg twice daily
-Continue Risperdal
-Patient is eating and drinking fine
-Appreciate Psychiatry
Patient lives with total palliative care coordinator daughter, history of advanced high-grade glioma recurrence , no longer on chemo since January, history of Brain tumor resection ( Aug 2019, [facility]). chronically confused. Patient's daughter wanted to restart comfort
medication but he is not in pain, only confused. He is on PRN Ativan and scheduled Risperdal. Await placement.
#Terminal Hematuria
-Consulted urology, recommendations appreciated
-Continue to monitor for now
#HTN�benign
-Continue lisinopril 20 mg daily, bisoprolol 10 mg twice daily, amlodipine 10 mg daily
#GERD
-Continue Pepcid 10 mg p.o. twice daily
#Asthma�no acute exacerbation
-Continue Arnuity Ellipta 100 mcg 1 puff daily
#Right breast cancer with removal 2009
DVT prophylaxis
Lovenox
Total time spent to see the patient, examine the patient on the floor, review data and lab results, discuss treatment plan with patient, nursing staff around 45 minutes
Anticipated Discharge: Today
Subjective/Interval History
-
Date of Service: May 22, 2024
No events over night
Objective Data
-
Vital Signs:
Vital Signs
Temp Pulse Resp BP Pulse Ox
97.9 F 52 16 137/81 97
05/22/24 07:00 05/22/24 08:13 05/22/24 08:13 05/22/24 07:00 05/22/24 08:13
I&O
05/21/24 05/22/24 05/23/24
06:59 06:59 06:59
Intake Total 1080 / 1080 1330 / 1330
Output Total 445 / 445 1300 / 1300
Balance 635 / 635
[2024-05-22 14:40] VITALS: BP 107/73; PULSE 59; O2SAT 97
[2024-05-22 15:00] VITALS: BP 129/69
[2024-05-22] MEDS: LOVENOX 40 MG SC (17:36)
[2024-05-22] MEDS: MELATONIN 3 MG PO (21:02)
[2024-05-22 23:00] VITALS: BP 139/71
[2024-05-23 07:47] VITALS: BP 141/80
[2024-05-23] MEDS: FLOVENT 44 MCG INHALER 2 PUFF INH ×2 (07:49→20:16)
[2024-05-23] MEDS: SENOKOT-S 1 TABLET PO (07:52)
[2024-05-23] MEDS: ZEBETA 10 MG PO ×2 (07:52→21:31)
[2024-05-23] MEDS: PEPCID 10 MG PO ×2 (07:52→21:28)
[2024-05-23] MEDS: KEPPRA 500 MG PO ×2 (07:52→21:28)
[2024-05-23] MEDS: SINGULAIR 10 MG PO (08:00)
[2024-05-23] MEDS: ZESTRIL 20 MG PO (08:01)
[2024-05-23] MEDS: NORVASC 10 MG PO (08:01)
[2024-05-23] MEDS: MIRALAX 17 GRAMS PO (08:01)
[2024-05-23] MEDS: RISPERDAL 0.5 MG PO ×2 (08:01→17:14)
--- NOTE | 2024-05-23 09:54 | W.PN.HOSP.TC ---
Today's Communication/Plan
-
.
Assessment / Plan
Assessment / Plan
Physical Exam
General: Not in acute distress
HEENT: Normocephalic
Respiratory: Clear to Auscultation Bilaterally
Cardiac: S1/S2,
GI: Soft, Non Tender, Non Distended. Positive bowel sounds.
Musculoskeletal: No Cyanosis, Edema, Left Lower Extremity (+2) and Edema, Right Lower Extremity (+2)
Skin: Warm and Dry
Neuro: Awake, Alert, Oriented (To person/name only)
Psych: Restless
Assessment/Plan
#Increased confusion/ambulatory dysfunction secondary to Glioblastoma and likely dementia, possible Alzheimer's
#Agitation - RESOLVED
Psychiatry consulted and patient is now on scheduled Risperdal
-PT/OT/case management consult for correction placement/hospice eval
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
-Continue Keppra 500 mg twice daily
-Continue Risperdal
-Patient is eating and drinking fine
-Appreciate Psychiatry
Patient lives with total social worker palliative care daughter, history of advanced high-grade glioma recurrence , no longer on chemo since January, history of Brain tumor resection ( Aug 2019, [facility]). chronically confused. Patient's daughter wanted to restart comfort
medication but he is not in pain, only confused. He is on PRN Ativan and scheduled Risperdal. Await placement.
#Terminal Hematuria
-Consulted urology, recommendations appreciated
-Continue to monitor for now
#HTN�benign
-Continue lisinopril 20 mg daily, bisoprolol 10 mg twice daily, amlodipine 10 mg daily
#GERD
-Continue Pepcid 10 mg p.o. twice daily
#Asthma�no acute exacerbation
-Continue Arnuity Ellipta 100 mcg 1 puff daily
#Right breast cancer with removal 2009
DVT prophylaxis
Lovenox
Total time spent to see the patient, examine the patient on the floor, review data and lab results, discuss treatment plan with patient, nursing staff around 45 minutes
Anticipated Discharge: Today
Subjective/Interval History
-
Date of Service: May 23, 2024
Objective Data
-
Vital Signs:
Vital Signs
Temp Pulse Resp BP Pulse Ox
97.4 F 50 16 141/80 96
05/23/24 07:47 05/23/24 08:12 05/23/24 08:12 05/23/24 07:52 05/23/24 09:14
I&O
05/22/24 05/23/24 05/24/24
06:59 06:59 06:59
Intake Total 1330 / 1330 960 / 960 480 / 480
Output Total 1300 / 1300 300 / 300 1120 / 1120
Balance 30 / 30 660 / 660 -640 / -640
[2024-05-23 15:00] VITALS: BP 122/78
[2024-05-23 15:17] VITALS: BP 122/78; PULSE 60; O2SAT 99
--- NOTE | 2024-05-23 15:44 | CM ---
Case management following for d/c planning
Discussed placement with pts daughter - additional referrals sent in Care Port
Spoke with Bernie at [facility] - has bed and can accept. Does take medicaid for LTC
Called and LM for daughter - given Bernie's phone number
Awaiting call back
Will need auth
Plan - anticipate SNF at d/c
[2024-05-23] MEDS: LOVENOX 40 MG SC (17:14)
[2024-05-23] MEDS: MELATONIN 3 MG PO (21:35)
[2024-05-23] MEDS: SENOKOT-S PO (21:36)
[2024-05-23 23:40] VITALS: BP 146/76
[2024-05-24 07:00] VITALS: BP 144/80
[2024-05-24] MEDS: FLOVENT 44 MCG INHALER 2 PUFF INH ×2 (07:39→19:21)
[2024-05-24] MEDS: RISPERDAL 0.5 MG PO ×2 (08:17→17:08)
[2024-05-24] MEDS: SINGULAIR 10 MG PO (08:17)
[2024-05-24] MEDS: KEPPRA 500 MG PO ×2 (08:17→21:37)
[2024-05-24] MEDS: NORVASC 10 MG PO (08:18)
[2024-05-24] MEDS: ZEBETA PO ×2 (08:19→21:38)
[2024-05-24] MEDS: PEPCID 10 MG PO ×2 (08:19→21:37)
[2024-05-24] MEDS: SENOKOT-S PO (08:20)
[2024-05-24] MEDS: ZESTRIL 20 MG PO (08:20)
[2024-05-24] MEDS: MIRALAX PO (08:21)
--- NOTE | 2024-05-24 09:28 | CM ---
Case management following for d/c planning
[facility] and [facility] can accept
Spoke with daughter Lala -aware - reports she will contact facility's and return call
CM will f/u regarding family choice
Will need auth
Plan - anticipate d/c to SNF - tbd
[2024-05-24 15:00] VITALS: BP 136/81
[2024-05-24 15:35] VITALS: BP 136/81; PULSE 58
[2024-05-24] MEDS: LOVENOX 40 MG SC (17:08)
[2024-05-24] MEDS: SENOKOT-S 1 TABLET PO (21:38)
[2024-05-24] MEDS: MELATONIN 3 MG PO (21:38)
[2024-05-24 23:23] VITALS: BP 136/71
[2024-05-25 07:55] VITALS: BP 125/70
[2024-05-25] MEDS: MIRALAX 17 GRAMS PO (08:04)
[2024-05-25] MEDS: PEPCID 10 MG PO ×2 (08:05→20:22)
[2024-05-25] MEDS: SENOKOT-S 1 TABLET PO ×2 (08:05→20:22)
[2024-05-25] MEDS: RISPERDAL 0.5 MG PO ×2 (08:05→17:36)
[2024-05-25] MEDS: SINGULAIR 10 MG PO (08:06)
[2024-05-25] MEDS: KEPPRA 500 MG PO ×2 (08:06→20:22)
[2024-05-25] MEDS: ZEBETA 10 MG PO ×2 (08:09→20:23)
[2024-05-25] MEDS: NORVASC 10 MG PO (08:09)
[2024-05-25] MEDS: ZESTRIL 20 MG PO (08:09)
[2024-05-25] MEDS: FLOVENT 44 MCG INHALER 2 PUFF INH ×2 (08:20→19:48)
--- NOTE | 2024-05-25 11:02 | W.PN.HOSP.TC ---
Today's Communication/Plan
-
Await discharge
Assessment / Plan
Assessment / Plan
Physical Exam
General: Not in acute distress
HEENT: Normocephalic
Respiratory: Clear to Auscultation Bilaterally
Cardiac: S1/S2,
GI: Soft, Non Tender, Non Distended. Positive bowel sounds.
Musculoskeletal: No Cyanosis, Edema, Left Lower Extremity (+2) and Edema, Right Lower Extremity (+2)
Skin: Warm and Dry
Neuro: Awake, Alert, Oriented (To person/name only)
Psych: Restless
Assessment/Plan
#Increased confusion/ambulatory dysfunction secondary to Glioblastoma and likely dementia, possible Alzheimer's
#Agitation - RESOLVED
Psychiatry consulted and patient is now on scheduled Risperdal
-PT/OT/case management consult for [facility] placement/hospice eval
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
-Continue Keppra 500 mg twice daily
-Continue Risperdal
-Patient is eating and drinking fine
-Appreciate Psychiatry
Patient lives with total ambulatory care coordinator daughter, history of advanced high-grade glioma recurrence , no longer on chemo since January, history of Brain tumor resection ( Aug 2019, [facility]). chronically confused. Patient's daughter wanted to restart comfort
medication but he is not in pain, only confused. He is on PRN Ativan and scheduled Risperdal. Await placement.
#Terminal Hematuria
-Consulted urology, recommendations appreciated
-Continue to monitor for now
#HTN�benign
-Continue lisinopril 20 mg daily, bisoprolol 10 mg twice daily, amlodipine 10 mg daily
#GERD
-Continue Pepcid 10 mg p.o. twice daily
#Asthma�no acute exacerbation
-Continue Arnuity Ellipta 100 mcg 1 puff daily
#Right breast cancer with removal 2009
DVT prophylaxis
Lovenox
Total time spent to see the patient, examine the patient on the floor, review data and lab results, discuss treatment plan with patient, nursing staff around 45 minutes
Anticipated Discharge: Today
Subjective/Interval History
-
Date of Service: May 25, 2024
No agitation
Objective Data
-
Vital Signs:
Vital Signs
Temp Pulse Resp BP Pulse Ox
98.1 F 69 16 132/72 98
05/25/24 07:55 05/25/24 08:20 05/25/24 08:20 05/25/24 08:09 05/25/24 08:20
I&O
05/24/24 05/25/24 05/26/24
06:59 06:59 06:59
Intake Total 1080 / 1080 1200 / 1200
Output Total 1370 / 1370 720 / 720
Balance -290 / -290 480 / 480
--- NOTE | 2024-05-25 11:07 | W.PN.HOSP.TC ---
Today's Communication/Plan
-
dc
Assessment / Plan
Assessment / Plan
Physical Exam
General: Not in acute distress
HEENT: Normocephalic
Respiratory: Clear to Auscultation Bilaterally
Cardiac: S1/S2,
GI: Soft, Non Tender, Non Distended. Positive bowel sounds.
Musculoskeletal: No Cyanosis, Edema, Left Lower Extremity (+2) and Edema, Right Lower Extremity (+2)
Skin: Warm and Dry
Neuro: Awake, Alert, Oriented (To person/name only)
Psych: Restless
Assessment/Plan
#Increased confusion/ambulatory dysfunction secondary to Glioblastoma and likely dementia, possible Alzheimer's
#Agitation - RESOLVED
Psychiatry consulted and patient is now on scheduled Risperdal
-PT/OT/case management consult for long term placement/hospice eval
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
-Continue Keppra 500 mg twice daily
-Continue Risperdal
-Patient is eating and drinking fine
-Appreciate Psychiatry
Patient lives with total personal care attendant daughter, history of advanced high-grade glioma recurrence , no longer on chemo since January, history of Brain tumor resection ( Aug 2019, [facility]). chronically confused. Patient's daughter wanted to restart comfort
medication but he is not in pain, only confused. He is on PRN Ativan and scheduled Risperdal. Await placement.
#Terminal Hematuria
-Consulted urology, recommendations appreciated
-Continue to monitor for now
#HTN�benign
-Continue lisinopril 20 mg daily, bisoprolol 10 mg twice daily, amlodipine 10 mg daily
#GERD
-Continue Pepcid 10 mg p.o. twice daily
#Asthma�no acute exacerbation
-Continue Arnuity Ellipta 100 mcg 1 puff daily
#Right breast cancer with removal 2009
DVT prophylaxis
Lovenox
Total time spent to see the patient, examine the patient on the floor, review data and lab results, discuss treatment plan with patient, nursing staff around 45 minutes
Anticipated Discharge: Today
Subjective/Interval History
-
Date of Service: May 24, 2024
.
Objective Data
-
Vital Signs:
Vital Signs
Temp Pulse Resp BP Pulse Ox
98.1 F 69 16 132/72 98
05/25/24 07:55 05/25/24 08:20 05/25/24 08:20 05/25/24 08:09 05/25/24 08:20
I&O
05/24/24 05/25/24 05/26/24
06:59 06:59 06:59
Intake Total 1080 / 1080 1200 / 1200
Output Total 1370 / 1370 720 / 720
Balance -290 / -290 480 / 480
[2024-05-25 11:17] VITALS: BP 136/71; PULSE 55; O2SAT 96
--- NOTE | 2024-05-25 12:24 | CM ---
Addendum entered by Viola Johansen 05/25/24 15:30:
Updates sent in Care Port to [facility] Rossi at [facility] has spoken to pts daughter - will review to determine acceptance
Original Note:
CM following for d/c planning
Chart reviewed
Received call from pts daughter - Spoke with rep from [facility] and LM for Bernie at [facility] - planning to see both facilities
Reports will contact CM regarding options/choice
Will need auth
CM will continue to follow for d/c needs
Plan - anticipate SNF at d/c
[2024-05-25 15:39] VITALS: BP 135/79
[2024-05-25] MEDS: LOVENOX 40 MG SC (17:36)
[2024-05-25] MEDS: MELATONIN 3 MG PO (21:00)
[2024-05-25 23:23] VITALS: BP 141/79
[2024-05-26 07:35] VITALS: BP 150/78
[2024-05-26] MEDS: MIRALAX 17 GRAMS PO (07:41)
[2024-05-26] MEDS: NORVASC 10 MG PO (07:41)
[2024-05-26] MEDS: RISPERDAL 0.5 MG PO ×2 (07:41→17:10)
[2024-05-26] MEDS: PEPCID 10 MG PO ×2 (07:41→20:44)
[2024-05-26] MEDS: KEPPRA 500 MG PO ×2 (07:41→20:44)
[2024-05-26] MEDS: ZESTRIL 20 MG PO (07:42)
[2024-05-26] MEDS: SENOKOT-S 1 TABLET PO ×2 (07:42→20:44)
[2024-05-26] MEDS: SINGULAIR 10 MG PO (07:42)
[2024-05-26] MEDS: ZEBETA 5 MG PO ×2 (07:44→20:44)
[2024-05-26] MEDS: FLOVENT 44 MCG INHALER 2 PUFF INH ×2 (07:50→17:54)
--- NOTE | 2024-05-26 10:30 | W.PN.HOSP.TC ---
Today's Communication/Plan
-
dc planning
Assessment / Plan
Assessment / Plan
Physical Exam
General: Not in acute distress
HEENT: Normocephalic
Respiratory: Clear to Auscultation Bilaterally
Cardiac: S1/S2,
GI: Soft, Non Tender, Non Distended. Positive bowel sounds.
Musculoskeletal: No Cyanosis, Edema, Left Lower Extremity (+2) and Edema, Right Lower Extremity (+2)
Skin: Warm and Dry
Neuro: Awake, Alert, Oriented (To person/name only)
Psych: Restless
Assessment/Plan
#Increased confusion/ambulatory dysfunction secondary to Glioblastoma and likely dementia, possible Alzheimer's
#Agitation - RESOLVED
Psychiatry consulted and patient is now on scheduled Risperdal
-PT/OT/case management consult for [facility] placement/hospice eval
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
-Continue Keppra 500 mg twice daily
-Continue Risperdal
-Patient is eating and drinking fine
-Appreciate Psychiatry
Patient lives with total insurance healthcare representative daughter, history of advanced high-grade glioma recurrence , no longer on chemo since January, history of Brain tumor resection ( Aug 2019, [facility]). chronically confused. Patient's daughter wanted to restart comfort
medication but he is not in pain, only confused. He is on PRN Ativan and scheduled Risperdal. Await placement.
#Terminal Hematuria
-Consulted urology, recommendations appreciated
-Continue to monitor for now
#HTN�benign
-Continue lisinopril 20 mg daily, bisoprolol 10 mg twice daily ( reduced to 5 mg BID to monitor HR) , amlodipine 10 mg daily
#GERD
-Continue Pepcid 10 mg p.o. twice daily
#Asthma�no acute exacerbation
-Continue Arnuity Ellipta 100 mcg 1 puff daily
#Right breast cancer with removal 2009
DVT prophylaxis
Lovenox
Total time spent to see the patient, examine the patient on the floor, review data and lab results, discuss treatment plan with patient, nursing staff around 45 minutes
Anticipated Discharge: Today
Subjective/Interval History
-
Date of Service: May 26, 2024
Objective Data
-
Vital Signs:
Vital Signs
Temp Pulse Resp BP Pulse Ox
98.1 F 74 16 150/78 95
05/26/24 07:35 05/26/24 07:53 05/26/24 07:53 05/26/24 07:44 05/26/24 07:53
I&O
05/25/24 05/26/24 05/27/24
06:59 06:59 06:59
Intake Total 1200 / 1200 1160 / 1160
Output Total 720 / 720 820 / 820
Balance 480 / 480 340 / 340
--- NOTE | 2024-05-26 11:34 | CM ---
Case management following for d/c planning
Chart reviewed
Remains on Medsitter
Awaiting determination from [facility] - updates sent yesterday
Spoke with pts daughter - updated - planning to look at facilities
CM continues to follow for d/c needs
Plan - anticipate SNF at d/c
[2024-05-26 15:25] VITALS: BP 137/79
[2024-05-26] MEDS: LOVENOX 40 MG SC (17:10)
[2024-05-26] MEDS: MELATONIN 3 MG PO (21:17)
[2024-05-26 23:50] VITALS: BP 141/81
[2024-05-27 07:45] VITALS: BP 136/74
[2024-05-27] MEDS: FLOVENT 44 MCG INHALER 2 PUFF INH ×2 (07:49→20:21)
--- NOTE | 2024-05-27 08:34 | W.PN.HOSP.TC ---
Today's Communication/Plan
-
await dc planning
Assessment / Plan
Assessment / Plan
Physical Exam
General: Not in acute distress
HEENT: Normocephalic
Respiratory: Clear to Auscultation Bilaterally
Cardiac: S1/S2,
GI: Soft, Non Tender, Non Distended. Positive bowel sounds.
Musculoskeletal: No Cyanosis, Edema, Left Lower Extremity (+2) and Edema, Right Lower Extremity (+2)
Skin: Warm and Dry
Neuro: Awake, Alert, Oriented (To person/name only)
Psych: Restless
Assessment/Plan
#Increased confusion/ambulatory dysfunction secondary to Glioblastoma and likely dementia, possible Alzheimer's
#Agitation - RESOLVED
Psychiatry consulted and patient is now on scheduled Risperdal
-PT/OT/case management consult for half-way placement/hospice eval
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
-Continue Keppra 500 mg twice daily
-Continue Risperdal
-Patient is eating and drinking fine
-Appreciate Psychiatry
Patient lives with total animal care specialist daughter, history of advanced high-grade glioma recurrence , no longer on chemo since January, history of Brain tumor resection ( Aug 2019, [facility]). chronically confused. Patient's daughter wanted to restart comfort
medication but he is not in pain, only confused. He is on PRN Ativan and scheduled Risperdal. Await placement.
#Terminal Hematuria
-Consulted urology, recommendations appreciated
-Continue to monitor for now
#HTN�benign
-Continue lisinopril 20 mg daily, bisoprolol 10 mg twice daily ( reduced to 5 mg BID to monitor HR) , amlodipine 10 mg daily
#GERD
-Continue Pepcid 10 mg p.o. twice daily
#Asthma�no acute exacerbation
-Continue Arnuity Ellipta 100 mcg 1 puff daily
#Right breast cancer with removal 2009
DVT prophylaxis
Lovenox
Total time spent to see the patient, examine the patient on the floor, review data and lab results, discuss treatment plan with patient, nursing staff around 45 minutes
Anticipated Discharge: Today
Subjective/Interval History
-
Date of Service: May 27, 2024
Objective Data
-
Vital Signs:
Vital Signs
Temp Pulse Resp BP Pulse Ox
98 F 56 16 136/74 98
05/27/24 07:45 05/27/24 07:51 05/27/24 07:51 05/27/24 07:45 05/27/24 07:51
I&O
05/26/24 05/27/24 05/28/24
06:59 06:59 06:59
Intake Total 1160 / 1160 1440 / 1440
Output Total 820 / 820 600 / 600
Balance 340 / 340 840 / 840
[2024-05-27] MEDS: SINGULAIR 10 MG PO (08:43)
[2024-05-27] MEDS: RISPERDAL 0.5 MG PO ×2 (08:43→17:27)
[2024-05-27] MEDS: KEPPRA 500 MG PO ×2 (08:43→21:22)
[2024-05-27] MEDS: PEPCID 10 MG PO ×2 (08:43→21:22)
[2024-05-27] MEDS: MIRALAX 17 GRAMS PO (08:43)
[2024-05-27] MEDS: NORVASC 10 MG PO (08:44)
[2024-05-27] MEDS: SENOKOT-S 1 TABLET PO ×2 (08:44→21:22)
[2024-05-27] MEDS: ZEBETA 5 MG PO ×2 (08:44→21:22)
[2024-05-27] MEDS: ZESTRIL 20 MG PO (08:44)
[2024-05-27 11:56] VITALS: BP 119/68; PULSE 53; O2SAT 95
[2024-05-27 15:29] VITALS: BP 121/68
[2024-05-27] MEDS: LOVENOX 40 MG SC (17:27)
[2024-05-27] MEDS: MELATONIN 3 MG PO (21:22)
[2024-05-27 23:56] VITALS: BP 145/86
[2024-05-28 07:00] VITALS: BP 160/84
[2024-05-28] MEDS: FLOVENT 44 MCG INHALER 2 PUFF INH ×2 (07:42→19:40)
[2024-05-28] MEDS: ZEBETA 5 MG PO ×2 (08:56→20:55)
[2024-05-28] MEDS: KEPPRA 500 MG PO ×2 (08:56→20:55)
[2024-05-28] MEDS: PEPCID 10 MG PO ×2 (08:56→20:55)
[2024-05-28] MEDS: SINGULAIR 10 MG PO (08:57)
[2024-05-28] MEDS: NORVASC 10 MG PO (08:57)
[2024-05-28] MEDS: RISPERDAL 0.5 MG PO ×2 (08:57→17:58)
[2024-05-28] MEDS: MIRALAX 17 GRAMS PO (08:57)
[2024-05-28] MEDS: SENOKOT-S 1 TABLET PO ×2 (08:57→20:55)
[2024-05-28] MEDS: ZESTRIL 20 MG PO (08:57)
--- NOTE | 2024-05-28 09:47 | W.PN.HOSP.TC ---
Today's Communication/Plan
-
Await dc
Assessment / Plan
Assessment / Plan
Physical Exam
General: Not in acute distress
HEENT: Normocephalic
Respiratory: Clear to Auscultation Bilaterally
Cardiac: S1/S2,
GI: Soft, Non Tender, Non Distended. Positive bowel sounds.
Musculoskeletal: No Cyanosis, Edema, Left Lower Extremity (+2) and Edema, Right Lower Extremity (+2)
Skin: Warm and Dry
Neuro: Awake, Alert, Oriented (To person/name only)
Psych: Restless
Assessment/Plan
#Increased confusion/ambulatory dysfunction secondary to Glioblastoma and likely dementia, possible Alzheimer's
#Agitation - RESOLVED
Psychiatry consulted and patient is now on scheduled Risperdal
-PT/OT/case management consult for retirement placement/hospice eval
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
-Continue Keppra 500 mg twice daily
-Continue Risperdal
-Patient is eating and drinking fine
-Appreciate Psychiatry
Patient lives with total progressive care unit registered nurse daughter, history of advanced high-grade glioma recurrence , no longer on chemo since January, history of Brain tumor resection ( Aug 2019, [facility]). chronically confused. Patient's daughter wanted to restart comfort
medication but he is not in pain, only confused. He is on PRN Ativan and scheduled Risperdal. Await placement.
#Terminal Hematuria
-Consulted urology, recommendations appreciated
-Continue to monitor for now
#HTN�benign
- Asymptomatic sinus bradycardia
-Continue lisinopril 20 mg daily, bisoprolol 10 mg twice daily ( reduced to 5 mg BID to monitor HR) , amlodipine 10 mg daily
#GERD
-Continue Pepcid 10 mg p.o. twice daily
#Asthma�no acute exacerbation
-Continue Arnuity Ellipta 100 mcg 1 puff daily
#Right breast cancer with removal 2009
DVT prophylaxis
Lovenox
Total time spent to see the patient, examine the patient on the floor, review data and lab results, discuss treatment plan with patient, nursing staff around 45 minutes
Anticipated Discharge: Today
Subjective/Interval History
-
Date of Service: May 28, 2024
No complaints
Objective Data
-
Vital Signs:
Vital Signs
Temp Pulse Resp BP Pulse Ox
98.0 F 48 16 160/84 95
05/28/24 07:00 05/28/24 07:44 05/28/24 07:44 05/28/24 07:00 05/28/24 07:44
I&O
05/27/24 05/28/24 05/29/24
06:59 06:59 06:59
Intake Total 1440 / 1440 1620 / 1620
Output Total 600 / 600 650 / 650
Balance 840 / 840 970 / 970
[2024-05-28 15:00] VITALS: BP 135/71
[2024-05-28] MEDS: LOVENOX 40 MG SC (17:59)
[2024-05-28] MEDS: MELATONIN 3 MG PO (21:10)
[2024-05-28 23:59] VITALS: BP 144/83
--- NOTE | 2024-05-29 07:33 | W.PN.HOSP.TC ---
Today's Communication/Plan
-
Awaiting placement
Assessment / Plan
Assessment / Plan
Physical Exam
General: Not in acute distress
HEENT: Normocephalic
Respiratory: Clear to Auscultation Bilaterally
Cardiac: S1/S2,
GI: Soft, Non Tender, Non Distended. Positive bowel sounds.
Musculoskeletal: No Cyanosis, Edema, Left Lower Extremity (+2) and Edema, Right Lower Extremity (+2)
Skin: Warm and Dry
Neuro: Awake, Alert, Oriented (To person/name only)
Psych: Restless
Assessment/Plan
#Increased confusion/ambulatory dysfunction secondary to Glioblastoma and likely dementia, possible Alzheimer's
#Agitation - RESOLVED
Psychiatry consulted and patient is now on scheduled Risperdal
-PT/OT/case management consult for care home placement/hospice eval
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
-Continue Keppra 500 mg twice daily
-Continue Risperdal
-Patient is eating and drinking fine
-Appreciate Psychiatry
Patient lives with total patient centered care specialist daughter, history of advanced high-grade glioma recurrence , no longer on chemo since January, history of Brain tumor resection ( Aug 2019, [facility]). chronically confused. Patient's daughter wanted to restart comfort
medication but he is not in pain, only confused. He is on PRN Ativan and scheduled Risperdal. Await placement.
#Terminal Hematuria
-Consulted urology, recommendations appreciated
-Continue to monitor for now
#HTN�benign
- Asymptomatic sinus bradycardia
-Continue lisinopril 20 mg daily, bisoprolol 10 mg twice daily ( reduced to 5 mg BID to monitor HR) , amlodipine 10 mg daily
#GERD
-Continue Pepcid 10 mg p.o. twice daily
#Asthma�no acute exacerbation
-Continue Arnuity Ellipta 100 mcg 1 puff daily
#Right breast cancer with removal 2009
DVT prophylaxis
Lovenox
Anticipated Discharge: 24 - 48 hours
Subjective/Interval History
-
Date of Service: May 29, 2024
Patient was seen and examined. He denied any new symptoms or complaints.
Objective Data
-
Vital Signs:
Vital Signs
Temp Pulse Resp BP Pulse Ox
98.2 F 59 18 144/83 97
05/28/24 23:59 05/28/24 23:59 05/28/24 23:59 05/28/24 23:59 05/28/24 23:59
I&O
05/28/24 05/29/24 05/30/24
06:59 06:59 06:59
Intake Total 1620 / 1620 1940 / 1940
Output Total 650 / 650 500 / 500
Balance 970 / 970 1440 / 1440
[2024-05-29] MEDS: FLOVENT 44 MCG INHALER 2 PUFF INH ×2 (07:42→19:42)
[2024-05-29 07:45] VITALS: BP 139/79
[2024-05-29] MEDS: ZEBETA 5 MG PO ×2 (07:55→20:52)
[2024-05-29] MEDS: MIRALAX 17 GRAMS PO (07:55)
[2024-05-29] MEDS: SENOKOT-S 1 TABLET PO ×2 (07:57→20:53)
[2024-05-29] MEDS: NORVASC 10 MG PO (07:57)
[2024-05-29] MEDS: KEPPRA 500 MG PO ×2 (07:57→20:53)
[2024-05-29] MEDS: RISPERDAL 0.5 MG PO ×2 (07:57→17:17)
[2024-05-29] MEDS: PEPCID 10 MG PO ×2 (07:57→20:53)
[2024-05-29] MEDS: SINGULAIR 10 MG PO (07:58)
[2024-05-29] MEDS: ZESTRIL 20 MG PO (07:58)
[2024-05-29 12:36] VITALS: BP 134/70; PULSE 63; O2SAT 99
--- NOTE | 2024-05-29 15:10 | CM ---
Case management following for d/c planning
Chart reviewed
Medically ready for d/c
Remains on medsitter
Daughter has appt today at [facility]
CM will f/u with pts daughter for placement
Will need auth
Plan - snf when bed obtained
[2024-05-29 15:42] VITALS: BP 135/66
[2024-05-29] MEDS: LOVENOX 40 MG SC (17:17)
[2024-05-29] MEDS: MELATONIN 3 MG PO (20:53)
[2024-05-29 23:39] VITALS: BP 144/82
[2024-05-30 07:00] VITALS: BP 152/81
[2024-05-30] MEDS: FLOVENT 44 MCG INHALER 2 PUFF INH ×2 (08:15→19:54)
[2024-05-30] MEDS: ZESTRIL 20 MG PO (08:57)
[2024-05-30] MEDS: NORVASC 10 MG PO (08:58)
[2024-05-30] MEDS: ZEBETA 5 MG PO ×2 (08:58→21:37)
[2024-05-30] MEDS: KEPPRA 500 MG PO ×2 (08:58→21:37)
[2024-05-30] MEDS: SENOKOT-S 1 TABLET PO ×2 (08:59→21:38)
[2024-05-30] MEDS: SINGULAIR 10 MG PO (08:59)
[2024-05-30] MEDS: MIRALAX 17 GRAMS PO (08:59)
[2024-05-30] MEDS: RISPERDAL 0.5 MG PO ×2 (08:59→17:45)
[2024-05-30] MEDS: PEPCID 10 MG PO ×2 (09:00→21:37)
--- NOTE | 2024-05-30 12:42 | CM ---
Case management following for d/c planning
Chart reviewed
Medsitter
Spoke with pts daughter
Reported that she was unable to meet with Starla at [facility] as starla king appt - she plans to call and reschedule
Discussed with pts daughter - medically ready and needs placement
Daughter will return call
Plan - snf when bed obtained
[2024-05-30 15:00] VITALS: BP 130/72
--- NOTE | 2024-05-30 15:03 | W.PN.HOSP.TC ---
Today's Communication/Plan
-
Stable. Still awaiting placement.
Assessment / Plan
Assessment / Plan
Physical Exam
General: Not in acute distress
HEENT: Normocephalic
Respiratory: Clear to Auscultation Bilaterally
Cardiac: S1/S2,
GI: Soft, Non Tender, Non Distended. Positive bowel sounds.
Musculoskeletal: No Cyanosis, Edema, Left Lower Extremity (+2) and Edema, Right Lower Extremity (+2)
Skin: Warm and Dry
Neuro: Awake, Alert, Oriented (To person/name only)
Psych: Restless
Assessment/Plan
#Increased confusion/ambulatory dysfunction secondary to Glioblastoma and likely dementia, possible Alzheimer's
#Agitation - RESOLVED
Psychiatry consulted and patient is now on scheduled Risperdal
-PT/OT/case management consult for jail placement/hospice eval
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
-Continue Keppra 500 mg twice daily
-Continue Risperdal
-Patient is eating and drinking fine
-Appreciate Psychiatry
Patient lives with total senior care manager daughter, history of advanced high-grade glioma recurrence , no longer on chemo since January, history of Brain tumor resection ( Aug 2019, [facility]). chronically confused. Patient's daughter wanted to restart comfort
medication but he is not in pain, only confused. He is on PRN Ativan and scheduled Risperdal. Await placement.
#Terminal Hematuria
-Consulted urology, recommendations appreciated
-Continue to monitor for now
#HTN�benign
- Asymptomatic sinus bradycardia
-Continue lisinopril 20 mg daily, bisoprolol 10 mg twice daily ( reduced to 5 mg BID to monitor HR) , amlodipine 10 mg daily
#GERD
-Continue Pepcid 10 mg p.o. twice daily
#Asthma�no acute exacerbation
-Continue Arnuity Ellipta 100 mcg 1 puff daily
#Right breast cancer with removal 2009
DVT prophylaxis
Lovenox
Anticipated Discharge: > 48 hours
Subjective/Interval History
-
Date of Service: May 30, 2024
Patient was seen and examined. He denied any new symptoms or complaints.
Objective Data
-
Vital Signs:
Vital Signs
Temp Pulse Resp BP Pulse Ox
98.0 F 69 14 152/81 95
05/30/24 07:00 05/30/24 08:19 05/30/24 08:19 05/30/24 07:00 05/30/24 09:00
I&O
05/29/24 05/30/24 05/31/24
06:59 06:59 06:59
Intake Total 1940 / 1940 720 / 720
Output Total 500 / 500 500 / 500
Balance 1440 / 1440 220 / 220
[2024-05-30] MEDS: LOVENOX 40 MG SC (17:45)
[2024-05-30] MEDS: TYLENOL 650 MG PO (21:36)
[2024-05-30] MEDS: MELATONIN 3 MG PO (21:37)
[2024-05-30 23:15] VITALS: BP 132/76
[2024-05-31] MEDS: FLOVENT 44 MCG INHALER 2 PUFF INH ×2 (07:30→19:45)
[2024-05-31] MEDS: KEPPRA 500 MG PO ×2 (07:33→20:46)
[2024-05-31] MEDS: SENOKOT-S 1 TABLET PO ×2 (07:33→20:47)
[2024-05-31] MEDS: MIRALAX 17 GRAMS PO (07:33)
[2024-05-31] MEDS: RISPERDAL 0.5 MG PO ×2 (07:33→16:20)
[2024-05-31] MEDS: ZEBETA 5 MG PO ×2 (07:33→21:13)
[2024-05-31] MEDS: SINGULAIR 10 MG PO (07:34)
[2024-05-31] MEDS: PEPCID 10 MG PO ×2 (07:34→20:46)
[2024-05-31] MEDS: ZESTRIL 20 MG PO (07:39)
[2024-05-31] MEDS: NORVASC 10 MG PO (07:39)
[2024-05-31 08:00] VITALS: BP 153/70
--- NOTE | 2024-05-31 11:34 | CM ---
Addendum entered by Viola Johansen 05/31/24 14:40:
Updates sent in Care Port to accepting facilities
LM with daughter requesting return call
Plan - anticipate snf when bed obtained
Original Note:
CM following for d/c planning
Chart reviewed
Called pts daughter Lala - [phone]
LM with call back number regarding placement
Plan - snf when bed obtained
--- NOTE | 2024-05-31 14:21 | W.PN.HOSP.TC ---
Today's Communication/Plan
-
Stable, having bowel movements, eating meals
Awaiting placement/discharge
Assessment / Plan
Assessment / Plan
Physical Exam
General: Not in acute distress
HEENT: Normocephalic
Respiratory: Clear to Auscultation Bilaterally
Cardiac: S1/S2,
GI: Soft, Non Tender, Non Distended. Positive bowel sounds.
Musculoskeletal: No Cyanosis, Edema, Left Lower Extremity (+2) and Edema, Right Lower Extremity (+2)
Skin: Warm and Dry
Neuro: Awake, Alert, Oriented (To person/name only)
Psych: Restless
Assessment/Plan
#Increased confusion/ambulatory dysfunction secondary to Glioblastoma and likely dementia, possible Alzheimer's
#Agitation - RESOLVED
Psychiatry consulted and patient is now on scheduled Risperdal
-PT/OT/case management consult for half-way placement/hospice eval
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
-Continue Keppra 500 mg twice daily
-Continue Risperdal
-Patient is eating and drinking fine
-Appreciate Psychiatry
Patient lives with total child care aide daughter, history of advanced high-grade glioma recurrence , no longer on chemo since January, history of Brain tumor resection ( Aug 2019, [facility]). chronically confused.
#Terminal Hematuria
-Consulted urology, recommendations appreciated
-Continue to monitor for now
#HTN�benign
- Asymptomatic sinus bradycardia
-Continue lisinopril 20 mg daily, bisoprolol 10 mg twice daily ( reduced to 5 mg BID to monitor HR) , amlodipine 10 mg daily
#GERD
-Continue Pepcid 10 mg p.o. twice daily
#Asthma�no acute exacerbation
-Continue Arnuity Ellipta 100 mcg 1 puff daily
#Right breast cancer with removal 2009
DVT prophylaxis
Lovenox
Anticipated Discharge: > 48 hours
Subjective/Interval History
-
Date of Service: May 31, 2024
Patient was seen and examined. He was eating breakfast. Patient's nurse said that he has been having a bowel movement everyday.
Objective Data
-
Vital Signs:
Vital Signs
Temp Pulse Resp BP Pulse Ox
98.5 F 55 21 153/70 96
05/31/24 08:00 05/31/24 08:00 05/31/24 08:00 05/31/24 08:00 05/31/24 08:12
I&O
05/30/24 05/31/24 06/01/24
06:59 06:59 06:59
Intake Total 720 / 720 480 / 480
Output Total 500 / 500 400 / 400
Balance 220 / 220 80 / 80
[2024-05-31 15:00] VITALS: BP 143/76
[2024-05-31 16:15] VITALS: BP 160/85; PULSE 63; O2SAT 97
[2024-05-31] MEDS: LOVENOX 40 MG SC (17:37)
[2024-05-31 20:07] LABS: Hematocrit 38.2 % (39.0-52.0); Hemoglobin 13.6 g/dL (13.0-18.0); Mean Corp Hgb Conc. 35.6 g/dL (33.0-37.0); Mean Corpuscular Hgb 33.5 pg (27.0-31.0); Mean Corpuscular Volume 94.1 fL (80.0-94.0); Mean Platelet Volume 8.1 fL (7.4-10.4); Platelet Count 158 10^3/uL (130-400); Red Blood Cell Count 4.06 10^6/uL (4.70-6.10); Red Cell Dist. Width 12.7 % (11.5-14.5); White Blood Cell Count 6.1 10^3/uL (4.8-10.8)
[2024-05-31 20:19] LABS: AST (SGOT) 19 U/L (17-59); Alkaline Phosphatase 79 U/L (38-126); Blood Urea Nitrogen 19 mg/dl (9-20); Carbon Dioxide 26 mmol/L (22-30); Estimated Creatinine Clearance 58 ml/min; Glucose 118 mg/dl (70-99); Magnesium 2.3 mg/dl (1.6-2.3); Potassium 4.4 mmol/L (3.5-5.1); Total Bilirubin 0.5 mg/dl (0.2-1.3); Total Protein 6.5 g/dl (6.3-8.2); eGFR > 60.00
[2024-05-31 20:34] LABS: ALT (SGPT) 17 U/L (0-50); Calcium 9.3 mg/dl (8.4-10.2); Chloride 103 mmol/L (98-107); Sodium 136 mmol/L (135-145)
[2024-05-31] MEDS: MELATONIN 3 MG PO (21:13)
[2024-05-31 23:25] VITALS: BP 138/78
[2024-06-01 08:00] VITALS: BP 136/74
[2024-06-01] MEDS: FLOVENT 44 MCG INHALER 2 PUFF INH ×2 (08:04→19:52)
[2024-06-01] MEDS: MIRALAX 17 GRAMS PO (08:50)
[2024-06-01] MEDS: ZESTRIL 20 MG PO (08:50)
[2024-06-01] MEDS: SINGULAIR 10 MG PO (08:50)
[2024-06-01] MEDS: ZEBETA 5 MG PO ×2 (08:50→19:51)
[2024-06-01] MEDS: RISPERDAL 0.5 MG PO ×2 (08:50→17:41)
[2024-06-01] MEDS: KEPPRA 500 MG PO ×2 (08:51→19:51)
[2024-06-01] MEDS: PEPCID 10 MG PO ×2 (08:51→19:51)
[2024-06-01] MEDS: NORVASC 10 MG PO (08:51)
[2024-06-01] MEDS: SENOKOT-S 1 TABLET PO ×2 (08:51→19:52)
--- NOTE | 2024-06-01 09:37 | CM ---
Addendum entered by Viola Johansen 06/01/24 16:39:
Daughter aware of plan
Addendum entered by Viola Johansen 06/01/24 14:56:
Spoke with Bernie at [facility]
Will accept
Will have bed tomorrow
Requested updated PT/OT notes
Will need auth
Plan - anticipate transfer to [facility] tomorrow
Addendum entered by Viola Johansen 06/01/24 13:44:
Spoke with pts riana Reeves - discussed SNF placement - prefers [facility]
Called Bernie [phone] at [facility] - asking for return call. LM in Care Port requesting call
Will need auth
Original Note:
Case management following for d/c planning
Returned call from rianaLala - LM on requesting return call
--- NOTE | 2024-06-01 11:30 | W.PN.HOSP.TC ---
Today's Communication/Plan
-
Having bowel movements, eating and drinking fine
Labwork rechecked and lab results are okay
Awaiting placement
Assessment / Plan
Assessment / Plan
Physical Exam
General: Not in acute distress
HEENT: Normocephalic
Respiratory: Clear to Auscultation Bilaterally
Cardiac: S1/S2,
GI: Soft, Non Tender, Non Distended. Positive bowel sounds.
Musculoskeletal: No Cyanosis, Edema, Left Lower Extremity (+2) and Edema, Right Lower Extremity (+2)
Skin: Warm and Dry
Neuro: Awake, Alert, Oriented (To person/name only)
Psych: Restless
Assessment/Plan
#Increased confusion/ambulatory dysfunction secondary to Glioblastoma and likely dementia, possible Alzheimer's
#Agitation - RESOLVED
-Psychiatry consulted and patient is now on scheduled Risperdal
-PT/OT/case management consult for detention placement/hospice eval
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
-Continue Keppra 500 mg twice daily
-Continue Risperdal
-Patient is eating and drinking fine and having regular bowel movements
-Appreciate Psychiatry
Patient lives with total day care aide daughter, history of advanced high-grade glioma recurrence , no longer on chemo since January, history of Brain tumor resection ( Aug 2019, [facility]). chronically confused.
#Terminal Hematuria
-Consulted urology, recommendations appreciated
-Continue to monitor for now
#HTN�benign
- Asymptomatic sinus bradycardia
-Continue lisinopril 20 mg daily, bisoprolol 10 mg twice daily ( reduced to 5 mg BID to monitor HR) , amlodipine 10 mg daily
#GERD
-Continue Pepcid 10 mg p.o. twice daily
#Asthma�no acute exacerbation
-Continue Arnuity Ellipta 100 mcg 1 puff daily
#Right breast cancer with removal 2009
DVT prophylaxis
Lovenox
Anticipated Discharge: > 48 hours
Subjective/Interval History
-
Date of Service: June 01, 2024
Patient was seen and examined. He denied any new symptoms or complaints, he has been having regular movements.
Objective Data
-
Vital Signs:
Vital Signs
Temp Pulse Resp BP Pulse Ox
97.9 F 60 16 136/74 96
06/01/24 08:00 06/01/24 08:50 06/01/24 08:06 06/01/24 08:50 06/01/24 08:06
I&O
05/31/24 06/01/24 06/02/24
06:59 06:59 06:59
Intake Total 480 / 480 600 / 600
Output Total 400 / 400 120 / 120
Balance 80 / 80 480 / 480
[2024-06-01 14:50] VITALS: BP 125/76; PULSE 61
[2024-06-01 15:00] VITALS: BP 155/75
[2024-06-01] MEDS: LOVENOX 40 MG SC (17:41)
[2024-06-01] MEDS: MELATONIN 3 MG PO (21:14)
[2024-06-01 23:40] VITALS: BP 120/73
[2024-06-02 07:40] VITALS: BP 143/80
[2024-06-02] MEDS: FLOVENT 44 MCG INHALER 2 PUFF INH ×2 (08:14→19:47)
[2024-06-02] MEDS: ZEBETA 5 MG PO ×2 (08:19→20:21)
[2024-06-02] MEDS: MIRALAX 17 GRAMS PO (08:19)
[2024-06-02] MEDS: RISPERDAL 0.5 MG PO ×2 (08:21→17:06)
[2024-06-02] MEDS: KEPPRA 500 MG PO ×2 (08:21→20:21)
[2024-06-02] MEDS: NORVASC 10 MG PO (08:21)
[2024-06-02] MEDS: PEPCID 10 MG PO ×2 (08:21→20:24)
[2024-06-02] MEDS: SINGULAIR 10 MG PO (08:21)
[2024-06-02] MEDS: SENOKOT-S 1 TABLET PO ×2 (08:21→20:25)
[2024-06-02] MEDS: ZESTRIL 20 MG PO (08:23)
--- NOTE | 2024-06-02 09:10 | CM ---
Addendum entered by Viola Johansen 06/02/24 14:51:
Spoke with Bernie at [facility] - can accept tomorrow
Facility [facility] - [phone]
[id number]
Will need updated PT/OT evals to obtain auth - TT sent to PT/OT
Plan - Transfer to [facility] tomorrow and auth obtained
Addendum entered by Viola Johansen 06/02/24 13:01:
Called [facility] [phone]
Spoke with Jeffrey - asked to speak with admissions
Admissions - Bernie - given same number previously called
Will attempt to reach out to Bernie again
Addendum entered by Viola Johansen 06/02/24 12:14:
Called and LM for Bernie at [facility] requesting call back
Original Note:
Case management following for d/c plan
Placed call to Bernie at [facility] -to confirm admission for today. LM in Care Port requesting call back
[2024-06-02 15:15] VITALS: BP 150/70
[2024-06-02 15:40] VITALS: BP 167/82
--- NOTE | 2024-06-02 16:16 | W.PN.HOSP.TC ---
Today's Communication/Plan
-
Anticipated discharge tomorrow
Assessment / Plan
Assessment / Plan
Physical Exam
General: Not in acute distress
HEENT: Normocephalic
Respiratory: Clear to Auscultation Bilaterally
Cardiac: S1/S2,
GI: Soft, Non Tender, Non Distended. Positive bowel sounds.
Musculoskeletal: No Cyanosis, Edema, Left Lower Extremity (+2) and Edema, Right Lower Extremity (+2)
Skin: Warm and Dry
Neuro: Awake, Alert, Oriented (To person/name only)
Psych: Restless
Assessment/Plan
#Increased confusion/ambulatory dysfunction secondary to Glioblastoma and likely dementia, possible Alzheimer's
#Agitation - RESOLVED
-Psychiatry consulted and patient is now on scheduled Risperdal
-PT/OT/case management consult [facility]/hospice eval
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
-Continue Keppra 500 mg twice daily
-Continue Risperdal
-Patient is eating and drinking fine and having regular bowel movements
-Appreciate Psychiatry
Patient lives with total pulmonary care nurse daughter, history of advanced high-grade glioma recurrence , no longer on chemo since January, history of Brain tumor resection ( Aug 2019, [facility]). chronically confused.
#Terminal Hematuria
-Consulted urology, recommendations appreciated
-Continue to monitor for now
#HTN�benign
- Asymptomatic sinus bradycardia
-Continue lisinopril 20 mg daily, bisoprolol 10 mg twice daily ( reduced to 5 mg BID to monitor HR) , amlodipine 10 mg daily
#GERD
-Continue Pepcid 10 mg p.o. twice daily
#Asthma�no acute exacerbation
-Continue Arnuity Ellipta 100 mcg 1 puff daily
#Right breast cancer with removal 2009
DVT prophylaxis
Lovenox
Anticipated Discharge: Within 24 hours
Subjective/Interval History
-
Date of Service: June 02, 2024
Patient was seen and examined. He was eating breakfast and denied any new symptoms or complaints.
Objective Data
-
Vital Signs:
Vital Signs
Temp Pulse Resp BP Pulse Ox
97.6 F 56 16 143/80 97
06/02/24 07:40 06/02/24 08:19 06/02/24 08:15 06/02/24 08:19 06/02/24 08:15
I&O
06/01/24 06/02/24 06/03/24
06:59 06:59 06:59
Intake Total 600 / 600 960 / 960
Output Total 120 / 120 300 / 300
Balance 480 / 480 660 / 660
[2024-06-02] MEDS: LOVENOX 40 MG SC (17:06)
[2024-06-03] MEDS: MELATONIN PO (03:47)
[2024-06-03 07:00] VITALS: BP 160/80
[2024-06-03] MEDS: FLOVENT 44 MCG INHALER 2 PUFF INH ×2 (08:11→19:48)
[2024-06-03 09:36] VITALS: BP 146/84; PULSE 55
[2024-06-03] MEDS: RISPERDAL 0.5 MG PO ×2 (09:43→16:24)
[2024-06-03] MEDS: PEPCID 10 MG PO ×2 (09:43→21:17)
[2024-06-03] MEDS: NORVASC 10 MG PO (09:44)
[2024-06-03] MEDS: ZESTRIL 20 MG PO (09:44)
[2024-06-03] MEDS: SENOKOT-S 1 TABLET PO ×2 (09:44→21:16)
[2024-06-03] MEDS: SINGULAIR 10 MG PO (09:44)
[2024-06-03] MEDS: KEPPRA 500 MG PO ×2 (09:44→21:17)
[2024-06-03] MEDS: ZEBETA 5 MG PO ×2 (09:44→21:17)
[2024-06-03] MEDS: MIRALAX 17 GRAMS PO (09:45)
--- NOTE | 2024-06-03 12:53 | CM ---
Addendum entered by Wilmer Sanchez 06/04/24 09:38:
Corrected approval time from 06/03/24 till 06/07/24 with NRD 06/07/24.
Addendum entered by Wilmer Sanchez 06/03/24 15:08:
PIOTR called [facility] many times, spoke to nursing passenger car cleaning supervisor Hilda and she made very clear that they do not have a bed available and pt cannot be admitted. Hilda provided director of admission Bernie phone number [phone]. CM called [facility] director of admission Bernie and has to leave a message.
D/C plan: [facility]. Awaiting for confirmation for admission. An auth for SNF level of care and ambulance auth obtained and available.
Original Note:
CM following re: discharge planning.
Reviewed pt's chart, met with pt.
Per CM and director of Case management, OT will evaluate the pt on Wednesday and an auth needs to be obtained and pt is accepted for admission to [facility].
OT updated evaluations noted this morning and an auth from [facility] i[facility] obtained this morning. Per [facility] patient case coordinator Heather, pt is approved for 5 initial days for skilled level at [facility] from today 06/03/24 till 06/03/24 with NRD 06/07/24. Auth
is: [id number].
Ambulance auth obtained for Acute care ambulance: auth: [id number]
CM called [facility], spoke to nursing passenger car cleaning supervisor Hilda and she stated she has no idea of pt's admission to [facility] today, they are full and she will need to talk to computing services director Bernie. Nursing passenger car cleaning supervisor has this
CM phone number to call when pt's admission is confirmed.
D/C plan: [facility]. Awaiting for confirmation on bed availability.
--- NOTE | 2024-06-03 13:21 | W.PN.HOSP.TC ---
Today's Communication/Plan
-
Discharge today
Assessment / Plan
Assessment / Plan
Physical Exam
General: Not in acute distress
HEENT: Normocephalic
Respiratory: Clear to Auscultation Bilaterally
Cardiac: S1/S2,
GI: Soft, Non Tender, Non Distended. Positive bowel sounds.
Musculoskeletal: No Cyanosis, Edema, Left Lower Extremity (+2) and Edema, Right Lower Extremity (+2)
Skin: Warm and Dry
Neuro: Awake, Alert, Oriented (To person/name only)
Psych: Restless
Assessment/Plan
#Increased confusion/ambulatory dysfunction secondary to Glioblastoma and likely dementia, possible Alzheimer's
#Agitation - RESOLVED
-Psychiatry consulted and patient is now on scheduled Risperdal
-PT/OT/case management consult for [facility] placement/hospice eval
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
-Continue Keppra 500 mg twice daily
-Continue Risperdal
-Patient is eating and drinking fine and having regular bowel movements
-Appreciate Psychiatry
Patient lives with total long term acute care registered nurse daughter, history of advanced high-grade glioma recurrence , no longer on chemo since January, history of Brain tumor resection ( Aug 2019, [facility]). chronically confused.
#Terminal Hematuria
-Consulted urology, recommendations appreciated
-Continue to monitor for now
#HTN�benign
- Asymptomatic sinus bradycardia
-Continue lisinopril 20 mg daily, bisoprolol 10 mg twice daily ( reduced to 5 mg BID to monitor HR) , amlodipine 10 mg daily
#GERD
-Continue Pepcid 10 mg p.o. twice daily
#Asthma�no acute exacerbation
-Continue Arnuity Ellipta 100 mcg 1 puff daily
#Right breast cancer with removal 2009
DVT prophylaxis
Lovenox
More than 30 minutes spent in discharge including
Final examination of the patient
Summarizing hospital stay
Instructions for continuing care to all relevant caregivers
Preparation of discharge records, prescriptions, and referral forms
Total time spent (in minutes): 36
Anticipated Discharge: Today
Subjective/Interval History
-
Date of Service: June 03, 2024
Patient was seen and examined. He denied any symptoms or complaints.
Objective Data
-
Vital Signs:
Vital Signs
Temp Pulse Resp BP Pulse Ox
97.9 F 81 16 160/80 97
06/03/24 07:00 06/03/24 08:15 06/03/24 08:15 06/03/24 07:00 06/03/24 08:15
I&O
06/02/24 06/03/24 06/04/24
06:59 06:59 06:59
Intake Total 960 / 960 840 / 840
Output Total 300 / 300 300 / 300
Balance 660 / 660 540 / 540
--- NOTE | 2024-06-03 14:13 | W.DS.TRANS ---
DC Summary - Customs Examiner
-
Discharge Instructions:
Discharge Diagnosis/Procedures #Increased confusion/ambulatory dysfunction
secondary to Glioblastoma and likely dementia,
possible Alzheimer's
#Agitation - RESOLVED
#Terminal Hematuria
#Hypertension
#Gastroesophageal Reflux Disease
#Asthma�no acute exacerbation
#Right breast cancer with removal 2009
Diet As tolerated
Activity As tolerated
Driving Restrictions No driving
Other Services PT,OT
Instructions:
Stand-Alone Forms:
Changes to Home Medications: Yes
Discharge Medications:
DC Medications w/original date entered in [employer]
levetiracetam 500 mg tablet 500 mg PO BID Seizures 11/07/19
montelukast 10 mg tablet 10 mg PO DAILY Lung/Breathing Issues 11/07/19
famotidine 10 mg tablet (Pepcid AC) 10 mg PO BID Gastrointestinal Issue 04/20/22
lisinopril 10 mg tablet 20 mg PO DAILY Blood Pressure 04/20/22
amlodipine 10 mg tablet 10 mg PO DAILY Blood Pressure 05/10/24
fluticasone furoate 100 mcg/actuation blister powder for inhalation (Arnuity Ellipta) 1 inh inhalation R DAILY Lung/Breathing Issues 05/10/24
bisoprolol fumarate 10 mg tablet 5 mg (1/2 x 10 mg) PO BID Blood Pressure #0 tabs 06/03/24
melatonin 3 mg tablet 3 mg PO HS #30 tabs 06/03/24
polyethylene glycol 3350 17 gram oral powder packet (HealthyLax) 17 g PO DAILY #30 ea 06/03/24
risperidone 0.5 mg tablet 0.5 mg PO BID@0800,1700 #60 tabs 06/03/24
sennosides 8.6 mg-docusate sodium 50 mg tablet (Stool Softener-Laxative) 1 tab PO BID #60 tabs 06/03/24
Home Medication Changes
Melatonin, HealthyLax, Risperidone and Sennosides-Docusate are new medications.
Bisoprolol has been reduced to 5 mg PO BID.
Pending Results: No
Total time spent discharging patient (in min): 36
[2024-06-03 15:00] VITALS: BP 135/71
[2024-06-03] MEDS: LOVENOX 40 MG SC (17:34)
[2024-06-03] MEDS: MELATONIN 3 MG PO (21:16)
[2024-06-03] MEDS: TYLENOL 650 MG PO (21:22)
[2024-06-03 21:25] VITALS: BP 132/75
[2024-06-04] MEDS: FLOVENT 44 MCG INHALER 2 PUFF INH ×2 (07:53→19:41)
[2024-06-04 08:00] VITALS: BP 133/74
[2024-06-04] MEDS: SENOKOT-S 1 TABLET PO ×2 (09:30→20:26)
[2024-06-04] MEDS: ZESTRIL 20 MG PO (09:31)
[2024-06-04] MEDS: KEPPRA 500 MG PO ×2 (09:31→20:26)
[2024-06-04] MEDS: PEPCID 10 MG PO ×2 (09:31→20:26)
[2024-06-04] MEDS: NORVASC 10 MG PO (09:31)
[2024-06-04] MEDS: SINGULAIR 10 MG PO (09:31)
[2024-06-04] MEDS: RISPERDAL 0.5 MG PO ×2 (09:31→17:07)
[2024-06-04] MEDS: ZEBETA 5 MG PO ×2 (09:32→20:26)
[2024-06-04] MEDS: MIRALAX 17 GRAMS PO (09:32)
[2024-06-04 10:25] VITALS: BP 125/80; PULSE 67; O2SAT 96
--- NOTE | 2024-06-04 11:11 | W.PN.HOSP.TC ---
Today's Communication/Plan
-
Discharge today
Assessment / Plan
Assessment / Plan
Physical Exam
General: Not in acute distress
HEENT: Normocephalic
Respiratory: Clear to Auscultation Bilaterally
Cardiac: S1/S2,
GI: Soft, Non Tender, Non Distended. Positive bowel sounds.
Musculoskeletal: No Cyanosis, Edema, Left Lower Extremity (+2) and Edema, Right Lower Extremity (+2)
Skin: Warm and Dry
Neuro: Awake, Alert, Oriented (To person/name only)
Psych: Restless
Assessment/Plan
#Increased confusion/ambulatory dysfunction secondary to Glioblastoma and likely dementia, possible Alzheimer's
#Agitation - RESOLVED
-Psychiatry consulted and patient is now on scheduled Risperdal
-PT/OT/case management consult for senior living placement/hospice eval
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
-Continue Keppra 500 mg twice daily
-Continue Risperdal
-Patient is eating and drinking fine and having regular bowel movements
-Appreciate Psychiatry
Patient lives with total hemodialysis patient care specialist daughter, history of advanced high-grade glioma recurrence , no longer on chemo since January, history of Brain tumor resection ( Aug 2019, [facility]). chronically confused.
#Terminal Hematuria
-Consulted urology, recommendations appreciated
-Continue to monitor for now
#HTN�benign
- Asymptomatic sinus bradycardia
-Continue lisinopril 20 mg daily, bisoprolol 10 mg twice daily ( reduced to 5 mg BID to monitor HR) , amlodipine 10 mg daily
#GERD
-Continue Pepcid 10 mg p.o. twice daily
#Asthma�no acute exacerbation
-Continue Arnuity Ellipta 100 mcg 1 puff daily
#Right breast cancer with removal 2009
DVT prophylaxis
Lovenox
More than 30 minutes spent in discharge including
Final examination of the patient
Summarizing hospital stay
Instructions for continuing care to all relevant caregivers
Preparation of discharge records, prescriptions, and referral forms
Total time spent (in minutes): 34
Anticipated Discharge: Today
Subjective/Interval History
-
Date of Service: June 04, 2024
Patient was seen and examined. He was watching TV and denied any new symptoms or complaints.
Objective Data
-
Vital Signs:
Vital Signs
Temp Pulse Resp BP Pulse Ox
97.7 F 51 19 133/74 98
06/04/24 08:00 06/04/24 08:00 06/04/24 08:00 06/04/24 08:00 06/04/24 08:00
I&O
06/03/24 06/04/24 06/05/24
06:59 06:59 06:59
Intake Total 840 / 840 1080 / 1080
Output Total 300 / 300
Balance 540 / 540 1080 / 1080
--- NOTE | 2024-06-04 13:09 | CM ---
CM following re: discharge planning.
Reviewed pt's chart. Discharge order in.
CM made numerous phone calls to [facility], spoke to nursing supervisor underwriting clerks Elias and after her consultation with JUANCHO and extension work director Bernie, she confirmed they do not have a bed available today.
CM left a message to executive creative director Bernie again, nor receiving call back neither yesterday nor today.
An auth for skilled level of care at [facility] obtained yesterday: pt is approved for 5 initial days for skilled level at [facility] from 06/03/24 till 06/07/24 with NRD 06/07/24. Auth is: [id number].
Ambulance auth obtained for Acute care ambulance: auth: [id number]
D/C plan: [facility]. Awaiting for confirmation for admission.
CM will follow to assist pt with discharge to [facility] when a bed is available.
[2024-06-04 15:00] VITALS: BP 127/68
[2024-06-04] MEDS: LOVENOX 40 MG SC (17:07)
[2024-06-04] MEDS: MELATONIN 3 MG PO (20:33)
[2024-06-04 23:00] VITALS: BP 139/77
[2024-06-05 07:00] VITALS: BP 151/79
[2024-06-05] MEDS: FLOVENT 44 MCG INHALER 2 PUFF INH ×2 (08:25→20:14)
[2024-06-05] MEDS: PEPCID 10 MG PO ×2 (09:09→20:24)
[2024-06-05] MEDS: SINGULAIR 10 MG PO (09:09)
[2024-06-05] MEDS: SENOKOT-S 1 TABLET PO ×2 (09:09→20:24)
[2024-06-05] MEDS: KEPPRA 500 MG PO ×2 (09:09→20:24)
--- NOTE | 2024-06-05 09:09 | CM ---
Addendum entered by Viola Johansen 06/05/24 16:33:
Received message from Bernie at [facility]. No male beds today
Will check on bed status and return call
Plan - anticipate [facility] SNF when bed available
Addendum entered by Viola Johansen 06/05/24 11:37:
Called [facility] for Bernie requesting call back
Spoke with pts daughter - aware auth obtained - waiting airline reservation agent back from Bernie in admissions
Original Note:
Case management following for d/c planning
Called [facility] for director of vendor management Bernie - requested call back and given phone number
Auth has been obtained
Awaiting call back
[2024-06-05] MEDS: RISPERDAL 0.5 MG PO ×2 (09:10→18:24)
[2024-06-05] MEDS: ZEBETA 5 MG PO ×2 (09:10→20:23)
[2024-06-05] MEDS: MIRALAX 17 GRAMS PO (09:10)
[2024-06-05] MEDS: ZESTRIL 20 MG PO (09:10)
[2024-06-05] MEDS: NORVASC 10 MG PO (09:10)
--- NOTE | 2024-06-05 11:06 | W.PN.HOSP.TC ---
Today's Communication/Plan
-
Pending bed in SNF
Assessment / Plan
Assessment / Plan
73yo M with PMHx of HTN, HTN, GERD, asthma, Hx of R breast CA s/p SX @2009, glioblastoma with last chemo in 2023 brought by daughter 2/2 worsening ambulatory capacity and confusion, that was developing for some period of time due to
glioblastoma and dementia. On admission his daughter, who is a POA and caregiver was interested in hospice care. In hospital was evaluated by psychiatry and medications adjusted. PAtient did not need any comfort medication during his stay.
In March Oncologists provided prognosis of 3-6 month after they stopped his chemo, since condition is terminal
Pending placement to SNF - aware. outpatient hospice depending on financial ability of the family.
A/P:
#Worsening demetia with confusion exacerbated by Glioblastoma
Psych evaluated - cont respiredal
#Hematuria 2/2 lovenox on BPH
Hgb stable, subsided
hold AC as per uology
#Essential HTN
#GERD
#Asthma not in exacerbation
#Hx of R breast Ca
cont hoem meds
DVt ppx SCDs
DNR/DNI
I have spent at least 36min reviewing chart, test results, communication with consultants, family and direct patient care
Anticipated Discharge: Within 24 hours
Subjective/Interval History
-
Date of Service: June 05, 2024
Objective Data
-
Vital Signs:
Vital Signs
Temp Pulse Resp BP Pulse Ox
97.5 F 52 16 151/79 96
06/05/24 07:00 06/05/24 07:00 06/05/24 07:00 06/05/24 07:00 06/05/24 07:00
I&O
06/04/24 06/05/24 06/06/24
06:59 06:59 06:59
Intake Total 1080 / 1080 240 / 240 480 / 480
Output Total 350 / 350 350 / 350
Balance 1080 / 1080 -110 / -110 130 / 130
Physical Exam
-
General: No Apparent Distress
HEENT: Normocephalic and Atraumatic
Respiratory: Clear to Auscultation
Cardiac: Regular Rhythm
GI: Soft and Nontender
Genito-urinary: No Costovertebral Tender
Musculoskeletal: No Clubbing, No Cyanosis and No Edema
Skin: Warm
Psych: Calm and Apparent Dementia
[2024-06-05 15:18] VITALS: BP 139/76
[2024-06-05] MEDS: LOVENOX 40 MG SC (18:23)
[2024-06-05] MEDS: MELATONIN 3 MG PO (20:31)
[2024-06-05 23:10] VITALS: BP 153/83
[2024-06-06 06:59] VITALS: BP 130/71
[2024-06-06] MEDS: FLOVENT 44 MCG INHALER 2 PUFF INH ×2 (07:39→19:39)
[2024-06-06] MEDS: MIRALAX 17 GRAMS PO (08:53)
[2024-06-06] MEDS: KEPPRA 500 MG PO ×2 (08:53→20:21)
[2024-06-06] MEDS: PEPCID 10 MG PO ×2 (08:53→20:21)
[2024-06-06] MEDS: NORVASC 10 MG PO (08:54)
[2024-06-06] MEDS: SINGULAIR 10 MG PO (08:54)
[2024-06-06] MEDS: ZESTRIL 20 MG PO (08:54)
[2024-06-06] MEDS: RISPERDAL 0.5 MG PO ×2 (08:54→17:44)
[2024-06-06] MEDS: ZEBETA 5 MG PO ×2 (08:54→20:21)
[2024-06-06] MEDS: SENOKOT-S 1 TABLET PO ×2 (08:55→20:21)
--- NOTE | 2024-06-06 09:47 | W.PN.HOSP.TC ---
Today's Communication/Plan
-
remains medically stable for d/c - CM working on placement
Assessment / Plan
Assessment / Plan
73yo M with PMHx of HTN, HTN, GERD, asthma, Hx of R breast CA s/p SX @2009, glioblastoma with last chemo in 2023 brought by daughter 2/2 worsening ambulatory capacity and confusion, that was developing for some period of time due to
glioblastoma and dementia. On admission his daughter, who is a POA and caregiver was interested in hospice care. In hospital was evaluated by psychiatry and medications adjusted. PAtient did not need any comfort medication during his stay.
In March Oncologists provided prognosis of 3-6 month after they stopped his chemo, since condition is terminal
Pending placement to SNF - CM aware. outpatient hospice depending on financial ability of the family.
A/P:
#Worsening demetia with confusion exacerbated by Glioblastoma
Psych evaluated - cont respiredal
#Hematuria 2/2 lovenox on BPH
Hgb stable, subsided
hold AC as per uology
#Essential HTN
#GERD
#Asthma not in exacerbation
#Hx of R breast Ca
cont hoem meds
DVt ppx SCDs
DNR/DNI
I have spent at least 36min reviewing chart, test results, communication with consultants, family and direct patient care
Anticipated Discharge: Within 24 hours
Subjective/Interval History
-
Date of Service: June 06, 2024
Objective Data
-
Vital Signs:
Vital Signs
Temp Pulse Resp BP Pulse Ox
98.0 F 60 16 130/71 97
06/06/24 06:59 06/06/24 08:54 06/06/24 07:40 06/06/24 08:54 06/06/24 07:40
I&O
06/05/24 06/06/24 06/07/24
06:59 06:59 06:59
Intake Total 240 / 240 840 / 840
Output Total 350 / 350 1100 / 1100
Balance -110 / -110 -260 / -260
Review of Systems
-
Unable to obtain full review of systems at this time due to: Dementia
History Source: Patient
All other systems: Reviewed and negative
Physical Exam
-
General: No Apparent Distress
Respiratory: Clear to Auscultation
Cardiac: Regular Rhythm
GI: Soft, Nontender and Nondistended
--- NOTE | 2024-06-06 09:52 | CM ---
Addendum entered by Viola Johansen 06/06/24 15:39:
Called daughter to update on SNF's - requesting call back
Addendum entered by Viola Johansen 06/06/24 14:08:
Called Lara at [facility] requesting return call
Original Note:
Case management following for discharge planning
Joana Galan - per Bernie in admissions no male beds available
[facility]
Spoke with Catarina at [facility] - updates sent - will review and check on bed availability
Spoke with Poonam at [facility] - unable to accept
Additional referrals sent in [facility]
Will need auth
Plan - SNF when bed obtained
[2024-06-06 12:15] VITALS: BP 118/77; PULSE 57; O2SAT 97
[2024-06-06 12:17] VITALS: BP 118/77; PULSE 88; O2SAT 97
[2024-06-06 15:14] VITALS: BP 121/74
[2024-06-06] MEDS: LOVENOX 40 MG SC (17:44)
[2024-06-06] MEDS: MELATONIN 3 MG PO (20:23)
[2024-06-06 23:14] VITALS: BP 130/79
[2024-06-07 07:00] VITALS: BP 152/79
[2024-06-07] MEDS: FLOVENT 44 MCG INHALER 2 PUFF INH (07:31)
[2024-06-07] MEDS: SENOKOT-S 1 TABLET PO (08:01)
[2024-06-07] MEDS: KEPPRA 500 MG PO (08:01)
[2024-06-07] MEDS: ZESTRIL 20 MG PO (08:01)
[2024-06-07] MEDS: ZEBETA 5 MG PO (08:01)
[2024-06-07] MEDS: MIRALAX 17 GRAMS PO (08:01)
[2024-06-07] MEDS: NORVASC 10 MG PO (08:01)
[2024-06-07] MEDS: SINGULAIR 10 MG PO (08:01)
[2024-06-07] MEDS: RISPERDAL 0.5 MG PO (08:01)
[2024-06-07] MEDS: PEPCID 10 MG PO (08:02)
--- NOTE | 2024-06-07 09:31 | CM ---
Case management following for d/c planning
pt for SNF - spoke with Bernie at [facility] - has male bed today
D/w daughter - agrees with [facility]
Called [employer] - to obtain auth
Spoke with Courtney
Approved for level 1 skilled care - start date 06/07, NRD 06/12 - [phone]
Auth # - [id number]
[facility] - auth # - [id number]
Plan - transfer to [facility]
R - [phone]
- [phone]
--- NOTE | 2024-06-07 10:10 | W.PN.HOSP.TC ---
Today's Communication/Plan
-
d/c
Assessment / Plan
Assessment / Plan
73yo M with PMHx of HTN, HTN, GERD, asthma, Hx of R breast CA s/p SX @2009, glioblastoma with last chemo in 2023 brought by daughter 2/2 worsening ambulatory capacity and confusion, that was developing for some period of time due to
glioblastoma and dementia. On admission his daughter, who is a POA and caregiver was interested in hospice care. In hospital was evaluated by psychiatry and medications adjusted. Patient did not need any comfort medication during his stay.
In March Oncologists provided prognosis of 3-6 month after they stopped his chemo, since condition is terminal
Pending placement to SNF - CM aware. as per CM patient to sign up for hospice upon placement to SNF.
A/P:
#Worsening demetia with confusion exacerbated by Glioblastoma
Psych evaluated - cont respiredal
#Hematuria 2/2 lovenox on BPH
Hgb stable, subsided
hold AC as per uology
#Essential HTN
#GERD
#Asthma not in exacerbation
#Hx of R breast Ca
cont hoem meds
DVt ppx SCDs
DNR/DNI
I have spent at least 36min reviewing chart, test results, communication with consultants, family and direct patient care
Anticipated Discharge: Today
Subjective/Interval History
-
Date of Service: June 07, 2024
Objective Data
-
Vital Signs:
Vital Signs
Temp Pulse Resp BP Pulse Ox
98.6 F 58 16 152/79 97
06/07/24 07:00 06/07/24 07:32 06/07/24 07:32 06/07/24 07:00 06/07/24 07:32
I&O
06/06/24 06/07/24 06/08/24
06:59 06:59 06:59
Intake Total 840 / 840 720 / 720
Output Total 1100 / 1100
Balance -260 / -260 720 / 720
Review of Systems
-
Unable to obtain full review of systems at this time due to: Dementia
History Source: Patient
All other systems: Reviewed and negative
Physical Exam
-
General: Comfortable
HEENT: Normocephalic
Cardiac: Regular Rhythm
GI: Soft, Nontender and Nondistended
Musculoskeletal: No Clubbing, No Cyanosis and No Edema
--- NOTE | 2024-06-07 10:12 | W.DCSUMMARY ---
Discharge Summary
Discharge Data
Date of Admission: 05/10/24
Date of Discharge: 06/07/24
-
Pending Results: No
Hospital Course
73yo M with PMHx of HTN, HTN, GERD, asthma, Hx of R breast CA s/p SX @2009, glioblastoma with last chemo in 2023 brought by daughter 2/2 worsening ambulatory capacity and confusion, that was developing for some period of time due to
glioblastoma and dementia. On admission his daughter, who is a POA and caregiver was interested in hospice care. In hospital was evaluated by psychiatry and medications adjusted. Patient did not need any comfort medication during his stay.
In March Oncologists provided prognosis of 3-6 month after they stopped his chemo, since condition is terminal
Pending placement to SNF - CM aware. as per CM patient to sign up for hospice upon placement to SNF. medically stable for d/c. I have spent at least 20 min preparing d/c
Patient was managed for:
#Worsening demetia with confusion exacerbated by Glioblastoma
#Hematuria 2/2 lovenox on BPH
#Essential HTN
#GERD
#Asthma not in exacerbation
#Hx of R breast Ca
Discharge Plan
-
Patient Disposition: Skilled Nursing/SNF
Discharge Diagnosis/Procedures: #Increased confusion/ambulatory dysfunction secondary to Glioblastoma and likely dementia, possible Alzheimer's
#Agitation - RESOLVED
#Terminal Hematuria
#Hypertension
#Gastroesophageal Reflux Disease
#Asthma�no acute exacerbation
#Right breast cancer with removal 2009
Condition: Good
Diet: As tolerated
Activity: As tolerated
Driving Restrictions: No driving
Other Services: PT and OT
Referrals:
Gm Qiu MD [Family Provider] - in less than 1 week (Hospital Follow-up)
Additional Discharge Medication Instructions: Melatonin, HealthyLax, Risperidone and Sennosides-Docusate are new medications.
Bisoprolol has been reduced to 5 mg PO BID.
Prescriptions:
New
melatonin 3 mg Tablet
3 mg PO HS Qty: 30 0RF
polyethylene glycol 3350 [HealthyLax] 17 gram Powder In Packet
17 g PO DAILY Qty: 30 0RF
risperidone 0.5 mg Tablet
0.5 mg PO BID@0800,1700 Qty: 60 0RF
sennosides-docusate sodium [Stool Softener-Laxative] 8.6-50 mg Tablet
1 tab PO BID Qty: 60 0RF
Continued
levetiracetam 500 MG tablet
500 mg PO BID
montelukast 10 MG tablet
10 mg PO DAILY
famotidine [Pepcid AC] 10 MG tablet
10 mg PO BID
lisinopril 10 MG tablet
20 mg PO DAILY
amlodipine 10 mg Tablet
10 mg PO DAILY
Arnuity Ellipta 100 mcg/actuation Blister With Device
1 inh INHALATION R DAILY
Changed
bisoprolol fumarate 10 MG tablet
5 mg PO BID Qty: 0 0RF
Discharge Orders:
Discharge Patient (As Directed); Ordered 06/04/24
Ordered By: Campos Quick
Discharge Date and Time
Print Language: RWANDAN
[2024-06-07 11:37] VITALS: BP 127/64
--- NOTE | 2024-06-07 12:09 | PTCARENOTE ---
Pt discharged. Report called to Anmol at [facility]. Pt transferred by Acute Care.
== END 2024-06-07 12:08 | DRG 57 ==
LOC: 3 WEST ACU 21:04
PROVIDERS: Hospitalist; Nurse Practitioner; ADMITTING PHYSICIAN Internal Medicine; ATTENDING PHYSICIAN Internal Medicine; CONSULT PHYSICIAN Specialist; EMERGENCY PHYSICIAN Emergency Medicine; FAMILY PHYSICIAN Family Medicine; OTHER PHYSICIAN Psychiatry & Neurology Psychiatry
DX: G30.9 Alzheimer's disease, unspecified (principal); C71.9 Malignant neoplasm of brain, unspecified; G93.40 Encephalopathy, unspecified; D68.32 Hemorrhagic disorder due to extrinsic circulating anticoagulants; F02.811 Dementia in other diseases classified elsewhere, unspecified severity, with agitation; R53.1 Weakness; I10 Essential (primary) hypertension; E66.9 Obesity, unspecified; J45.909 Unspecified asthma, uncomplicated; R29.6 Repeated falls; K21.9 Gastro-esophageal reflux disease without esophagitis; N40.1 Benign prostatic hyperplasia with lower urinary tract symptoms; R31.9 Hematuria, unspecified; E86.0 Dehydration; W01.0XXA Fall on same level from slipping, tripping and stumbling without subsequent striking against object, initial encounter; Y93.9 Activity, unspecified; Y92.009 Unspecified place in unspecified non-institutional (private) residence as the place of occurrence of the external cause; Z66 Do not resuscitate; Z92.21 Personal history of antineoplastic chemotherapy; Z92.3 Personal history of irradiation; Z87.01 Personal history of pneumonia (recurrent); Z85.3 Personal history of malignant neoplasm of breast; Z68.28 Body mass index [BMI] 28.0-28.9, adult; Z88.1 Allergy status to other antibiotic agents; Z88.2 Allergy status to sulfonamides; Z75.1 Person awaiting admission to adequate facility elsewhere; Z79.01 Long term (current) use of anticoagulants
CPT/HCPCS: 80053; 81003; 83735; 85025; 85027; 94640; 96360; 97110; 97116; 97167; 97530; 97535; 99285